=== PATIENT | female | born 1965 | race Caucasian/White ===

== ENCOUNTER 2021-11-30 13:55 | Emergency (ER) | payer OTHER, SELFPAY ==
[2021-11-30 15:10] VITALS: BP 118/73; PULSE 75; RESP 19; TEMP 36.7; O2SAT 100; BMI 24.4
--- NOTE | 2021-11-30 15:23 | EXP.UTC ---
Discharge Plan Disposition Patient Disposition: Home, Self-Care Condition: Good Prescriptions Prescriptions: New methylprednisolone [Medrol (Galen)] 4 mg tablets,dose pack 4 mg PO DIRECTED 6 Days Qty: 6 0RF Rx Instructions: 4 mg orally ;Medrol dose taper galen doxycycline monohydrate 100 mg tablet 100 mg PO BID 10 Days Qty: 20 0RF Referrals Follow up/Referrals: Zee Stacy MD [Primary Care Provider] - See instructions Activity Restrictions/Add. Instructions Additional Instructions/Restrictions: Follow up with ENT as soon as possible. Clinical Impressions Clinical Impression: Acute bacterial sinusitis Instructions Patient Instructions: DI for Sinusitis Discharge ED Provider: Kacy Mendoza [facility] [place] General Stated complaint: congestion, G[place]O Mode of Arrival: Ambulatory Source of Information: Patient Limitations: No Limitations Time Seen by Provider: 11/30/21 15:23 Description of Symptoms (Recalled from Triage Doc. by RN): PATIENT C/O SINUS CONGESTION HEENT Symptoms (Recalled from RN notes): Yes Resp Symptoms (Recalled from RN notes): No Skin Symptoms (Recalled from RN notes): No MS Symptoms (Recalled from RN notes): No Functional Status (Recalled from RN notes): WNL History of Present Illness Provider Complaint: P reports that for the last week she has been experiencing nasal congestion and now she has green bloody drainage. Pt reports that the left side of her face has a lot of pressure. She states that she had sinus surgery on the right side previously. She relates she has not taken anything for her symptoms. Related Data Previous Rx's Medication Instructions Recorded doxycycline monohydrate 100 mg 100 mg PO BID 10 days #20 tabs 11/30/21 tablet methylprednisolone 4 mg tablets in 4 mg PO DIRECTED 6 days #6 tabs 11/30/21 a dose pack (Medrol (Galen)) Allergies Allergy/AdvReac Type Severity Reaction Status Date / Time acetaminophen [From Percocet] Allergy Verified 11/30/21 15:24 codeine Allergy Verified 11/30/21 15:24 hydrocodone [From Lortab] Allergy Verified 11/30/21 15:24 meloxicam Allergy Verified 11/30/21 15:24 Opioids - Morphine Analogues Allergy Verified 11/30/21 15:24 oxycodone [From Percocet] Allergy Verified 11/30/21 15:24 Penicillins Allergy Verified 09/04/22 15:24 Sulfa (Sulfonamide Allergy Verified 11/30/21 15:24 Antibiotics) Worker's Comp Is this a Worker's Comp case?: No PFSH PFSH Medical History (Updated 11/30/21 @ 15:31 by Kacy Mendoza APRN) Migraine Surgical History (Updated 11/30/21 @ 15:22 by Nadja Elkins RN) History of section History of cholecystectomy History of hysterectomy History of tubal ligation Social History (Updated 11/30/21 @ 15:22 by Nadja Elkins RN) Smoking Status: Current every day smoker alcohol intake: never current occupational status: employed Travel in the last 8 weeks: None ROS Obtained: Yes All systems reviewed & no additional complaints except as documented Constitutional Constitutional: Reports system reviewed and no additional complaints, except as documented ENT Ears, Nose, Mouth, and Throat: Reports as per HPI, Reports nasal congestion, Reports nasal discharge, Reports sinus pain and Reports sinus pressure Cardiovascular Cardiovascular: Reports system reviewed and no additional complaints, except as documented Respiratory Respiratory: Reports system reviewed and no additional complaints, except as documented Gastrointestinal Gastrointestingal: Reports system reviewed and no additional complaints, except as documented Musculoskeletal Musculoskeletal: Reports system reviewed and no additional complaints, except as documented Integumentary/Breasts Skin/Breast: Reports system reviewed and no additional complaints, except as documented Physical Exam General General appearance: alert and in no apparent distress Head Head exam: atraumatic and normoceph
[2021-11-30 15:37] VITALS: BP 118/73; PULSE 75; RESP 19; TEMP 36.7; O2SAT 100
== END 2021-11-30 15:39 | disposition home or self-care (01) ==
PROVIDERS: Emergency Provider Nurse Practitioner Family; PCP Family Medicine
DX: J01.90 Acute sinusitis, unspecified (principal); B96.89 Other specified bacterial agents as the cause of diseases classified elsewhere
CPT/HCPCS: 99212; G0463

== ENCOUNTER → 2021-12-12 10:04 | Outpatient (CLI) | payer OTHER, SELFPAY ==
[2021-12-12 11:02] LABS: Basophils # 0.2 K/mm3 (0-0.2); Basophils % 1.4 % (0.1-2.0); Eosinophils # 0.2 K/mm3 (0.0-0.4); Eosinophils % 1.8 % (0.1-12.0); Hematocrit 46.7 % (37.0-47.0); Hemoglobin 14.8 g/dL (12.2-16.2); Lymphocytes # 5.1 K/mm3 (0.7-4.5); Lymphocytes % 44.8 % (10-50); Mean Corpuscular HGB Conc 31.7 g/dL (31.8-35.4); Mean Corpuscular Hemoglobin 32.2 pg (27.0-31.2); Mean Corpuscular Volume 101.6 fl (81-99); Mean Platelet Volume 7.5 fl (7.4-10.4); Monocytes # 0.6 K/mm3 (0.1-1.0); Monocytes % 5.5 % (1.7-9.3); Neutrophils # 5.3 K/mm3 (1.8-7.8); Neutrophils % 46.5 % (37.0-80.0); Platelet Count 333 K/mm3 (142-424); Red Cell Distribution Width 13.1 % (11.5-17.5); White Blood Count 11.4 K/mm3 (4.8-10.8)
== END ==
PROVIDERS: PCP Family Medicine; Visit Provider Physician Assistant
DX: J01.90 Acute sinusitis, unspecified (principal)
CPT/HCPCS: 36415; 85025

== ENCOUNTER → 2021-12-23 13:15 | Outpatient (CLI) | payer OTHER, SELFPAY ==
--- NOTE | 2021-12-23 13:16 | CT_ITS ---
FINAL REPORT CLINICAL HISTORY: papilloma left sinus FINDINGS: CT FACIAL BONES/SINUSES W & W/O CONTRAST Axial CT images were performed through the facial bones/sinuses without and with contrast. Coronal and sagittal reformatted images were submitted. This study was performed with techniques to keep radiation doses as low as reasonably achievable (ALARA). Individualized dose reduction techniques using automated exposure control or adjustment of mA and/or kV according to the patient's size were employed. There is an enhancing mass occupying the entire left maxillary sinus extending into the left nasal air passage with significant narrowing of the left nasal cavity. Bony wall thickening of the left maxillary sinus indicative of a chronic process. Destruction of the medial wall of left maxillary sinus. Mild nasal septal deviation to the right. IMPRESSION: Large left maxillary antrochoanal polyp. Carcinoma not excluded. Reviewed, Interpreted and Dictated by Zee Castillo MD Transcribed by Federico Fair Authenticated and [facility]
== END ==
PROVIDERS: PCP Family Medicine; Visit Provider Student in an Organized Health Care Education/Training Program
DX: D10.6 Benign neoplasm of nasopharynx (principal)
CPT/HCPCS: 70488; Q9967

== ENCOUNTER 2023-11-16 16:12 | Emergency (ER) | payer OTHER, SELFPAY ==
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
[2023-11-16 16:19] VITALS: BP 125/51; PULSE 89; RESP 20; TEMP 36.8; O2SAT 98; BMI 27.3
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
--- NOTE | 2023-11-16 16:21 | XR_ITS ---
PROCEDURE INFORMATION: Exam: XR Left Ankle Exam date and time: 11/16/2023 4:30 PM Age: 58 years old Clinical indication: Injury or trauma; Other: Tree on leg; Blunt trauma; Ankle; Left; Additional info: Tree fell on leg TECHNIQUE: Imaging protocol: Radiologic exam of the left ankle. Views: 3 or more views. COMPARISON: CR XR FOOT LT MIN 3V 11/16/2023 4:28 PM FINDINGS: Bones/joints: The osseous structures appear intact with no evidence of acute fracture, dislocation, or malalignment. Joint spaces are preserved. No abnormal bone density or destructive lesions are noted. Soft tissues: Soft tissues appear unremarkable. IMPRESSION: At the time of imaging, there is no evidence for acute osseous abnormalities.
[2023-11-16] MEDS: ACETAMINOPHEN 500MG TAB 1000 MG PO (17:26)
[2023-11-16] MEDS: IBUPROFEN 400 MG TABLET 800 MG PO (17:27)
[2023-11-16 17:32] VITALS: BP 109/63; PULSE 77; RESP 16; TEMP 36.7; O2SAT 99
== END 2023-11-16 17:33 | disposition home or self-care (01) ==
PROVIDERS: Emergency Provider Emergency Medicine; PCP Family Medicine
DX: S80.12XA Contusion of left lower leg, initial encounter (principal); W20.8XXA Other cause of strike by thrown, projected or falling object, initial encounter
CPT/HCPCS: 73590; 73610; 73630; 99283

== ENCOUNTER 2024-12-01 11:55 | Day surgery (SDC) | payer OTHER, SELFPAY ==
--- OUTSIDE RECORDS SUMMARY | 2024-11-03 04:30 | XMS_ITS ---
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 Role Phone Jael Stacy Primary Care Provider Neto Samuel [phone] REASON FOR VISIT allergy shots Encounters Encounter Location Date Provider Diagnosis [facility] [address] [facility] [place] [address] [facility] [address] [place] [id number] 11/03/2024 Neto Samuel Seasonal allergic rhinitis due to other allergic trigger J30.89 Assessments Encounter Date Diagnosis (ICD Code) Assessment Notes Treatment Notes Treatment Clinical Notes Section Notes 11/03/2024 Seasonal allergic rhinitis due to other allergic trigger (ICD-10 - J30.89) Plan Of Treatment Next Appt Details Provider Name:Neto Rosado ry, 12/05/2024 10:45:00 AM, [address] [facility] [place] [address] [facility], [address], [place], [phone], Medications Administered Medication Instructions Date of Administration Dosage Notes allergy 11/03/2024 0.35 mL Dog mix RA allergy 11/03/2024 0.35 mL cat mix LA Progress Notes * Trudy ZABALAOB: 8 (59 yo F)Acc No.[id number]:11/03/2024 Patient: Mica EBRNAL Provider: Asiya Samuel M.D. :1965 A ge:59 Y S ex:Female Date:11/03/2024 Address:[place], [id number] Pcp:Jael Stacy Subjective: * Chief Complaints: * 1 . Allergy shots. * Medical History: Objective: * Vitals: Assessment: * Assessment: 1. S easonal allergic rhinitis due to other allergic trigger - J30.89 (Primary) ? Plan: * Treatment: * Therapeutic Injections: allergy : 0.35 mL (Route: Subcutaneous) given by Karla Travis on subcutaneus (Seasonal allergic rhinitis due to other allergic trigger) allergy : 0.35 mL (Route: Subcutaneous) given by Karla Travis on subcutaneus (Seasonal allergic rhinitis due to other allergic trigger) * Procedure Codes: 9 5117 IMMUNOTHERAPY INJECTIONS * Images: Billing Information: * Visit Code: * Procedure Codes: 12977 IMMUNOTHERAPY INJECTIONS. * Electronic signature of Lulú Samuel MD on 12/04/2024 at 02:01 PM EDT Sign off status: Pending * Provider: Asiya Samuel M.D. Date: 0 11/03/2024 Generated for Leana mccullough/Rosi/Malvinitting on: 0 12/04/2024 02:01 PM EDT
--- OUTSIDE RECORDS SUMMARY | 2024-11-11 07:00 | XMS_ITS ---
[facility] [address] [facility] [address] [facility] [address] [place] [id number] Care Team Providers Care Permit Specialist Name Role Phone Jael Stacy Primary Care Provider [phone] Neto Samuel Unavailable [phone] REASON FOR VISIT allergy injection Medications Medication SIG (Take, Route, Frequency, Duration) Notes Start Date End Date Status Nicotine Polacrilex 2 mg CHEW 1 PIECE OF GUM EVERY 2 HOURS NEEDED; Duration: 9 Active buPROPion HCl ER (SR) 150 mg TAKE ONE TABLET BY MOUTH 2 TIMES A DAY; Duration: 30 Active Montelukast Sodium 10 MG 1 tablet Orally Once a day; Duration: 90 days Active Xyzal Allergy 24HR 5 MG 1 tab(s) orally once a day (in the evening); Duration: 30 day(s) Active Encounters Encounter Location Date Provider Diagnosis [place] [address] [facility] [address] [facility] [address] [place] [id number] 11/11/2024 Neto Samuel Allergic rhinitis, unspecified seasonality, unspecified trigger J30.9 Assessments Encounter Date Diagnosis (ICD Code) Assessment Notes Treatment Notes Treatment Clinical Notes Section Notes 11/11/2024 Allergic rhinitis, unspecified seasonality, unspecified trigger (ICD-10 - J30.9) Plan Of Treatment Next Appt Details Provider Name:Neto Rosado ry, 12/05/2024 10:45:00 AM, [address] [facility] [address] [facility], [address], [place], [id number], Medications Administered Medication Instructions Date of Administration Dosage Notes allergy 11/11/2024 0.35 mL Dog Mix: LT Ar m allergy 11/11/2024 0.35 mL Cat Mix: RT Ar m Progress Notes * Trudy ZABALAOB: 8 (59 yo F)Acc No.[id number]:11/11/2024 Patient: Mica BERNAL Provider: Asiya Samuel M.D. :1965 A ge:59 Y S ex:Female Date:11/11/2024 Address:[id number] Pcp:Jael Stacy Subjective: * Chief Complaints: * 1 . Allergy injection. * Medical History: * Medications: T aking Xyzal Allergy 24HR 5 MG Tablet 1 tab(s) orally once a day (in the evening) , Taking Montelukast Sodium 10 MG Tablet 1 tablet Orally Once a day , Taking Nicotine Polacrilex 2 mg Gum CHEW 1 PIECE OF GUM EVERY 2 HOURS NEEDED , Taking buPROPion HCl ER (SR) 150 mg Tablet Extended Release 12 Hour TAKE ONE TABLET BY MOUTH 2 TIMES A DAY , Medication List reviewed and reconciled with the patient Objective: * Vitals: Assessment: * Assessment: 1. A llergic rhinitis, unspecified seasonality, unspecified trigger - J30.9 (Primary) ? Plan: * Treatment: * Therapeutic Injections: allergy : 0.35 mL (Route: Subcutaneous) given by Josy Cervantes on subcutaneus (Allergic rhinitis, unspecified seasonality, unspecified trigger) allergy : 0.35 mL (Route: Subcutaneous) given by Josy Cervantes on subcutaneus (Allergic rhinitis, unspecified seasonality, unspecified trigger) * Procedure Codes: 9 5117 IMMUNOTHERAPY INJECTIONS * Images: Billing Information: * Visit Code: * Procedure Codes: 64043 IMMUNOTHERAPY INJECTIONS. * Electronic signature of Lulú Samuel MD on 12/04/2024 at 02:01 PM EDT Sign off status: Pending * Provider: Asiya Samuel M.D. Date: 11/11/2024 Generated for Leana mccullough/Rosi/eTcodismitting on: 0 12/04/2024 02:01 PM EDT
--- OUTSIDE RECORDS SUMMARY | 2024-11-24 06:00 | XMS_ITS ---
Author [facility] Address [address] [place] [id number] Care Team Providers Care Presser All Around Name Role Phone Jael Stacy Primary Care Provider [phone] Neto Samuel Unavailable [phone] Allergies Allergen (clinical drug ingredient) Drug/Non Drug Allergy documented on EMR Reaction Allergy Type Onset Date Status amoxicillin Amoxicillin Unknown Drug Allergy Act azucena cefdinir Cefdinir Unknown Drug Allergy Active doxycycline Doxycycline Unknown Drug Allergy Act azucena acetaminophen / hydrocodone HYDROcodone-Acetamino phen Unknown Drug Allergy Active Levaquin Unknown Drug Allergy Active Lortab Unknown Drug Allergy Active meloxicam Meloxicam Unknown Drug Allergy Active naproxen Naproxen Unknown Drug Allergy Active acetaminophen / oxycodone Percocet Unknown Drug Allergy Active codeine Codeine Unknown Drug Allergy Active Substance with penicillin structure and antibacterial mechanism of action (substance) Penicillins Unknown Drug Allergy Active Substance with sulfonamide structure and antibacterial mechanism of action (substance) Sulfa Antibiotics Unknown Drug Allergy Active tramadol traMADol Unknown Drug Allergy Active REASON FOR VISIT allergy shots Medications Medication SIG (Take, Route, Frequency, Duration) Notes Start Date End Date Status Montelukast Sodium 10 MG 1 tablet Orally Once a day; Duration: 90 days Active Nicotine Polacrilex 2 mg CHEW 1 PIECE OF GUM EVERY 2 HOURS NEEDED; Duration: 9 Active buPROPion HCl ER (SR) 150 mg TAKE ONE TABLET BY MOUTH 2 TIMES A DAY; Duration: 30 Active Xyzal Allergy 24HR 5 MG 1 tab(s) orally once a day (in the evening); Duration: 30 day(s) Active Encounters Encounter Location Date Provider Diagnosis [facility] [address] [facility] [address] [place] [id number] 11/24/20[place] Seasonal allergic rhinitis due to other allergic trigger J30.89 Assessments Encounter Date Diagnosis (ICD Code) Assessment Notes Treatment Notes Treatment Clinical Notes Section Notes 11/24/2024 Seasonal allergic rhinitis due to other allergic trigger (ICD-10 - J30.89) Plan Of Treatment Next Appt Details Provider Name:Netoprakash Rosado ry, 12/05/2024 10:45:00 AM, [address] [facility], [address], [place], [phone], Medications Administered Medication Instructions Date of Administration Dosage Notes allergy 11/24/2024 0.05 mL allergy 11/24/2024 0.05 mL Progress Notes * Trudy ZABALAOB: 8 (59 yo F)Acc No.[id number]:11/24/2024 Patient: Mica BERNAL Provider: Asiya Samuel M.D. :1965 A ge:59 Y S ex:Female Date:11/24/2024 Address:[address] [place], [place] [address] [facility] Pcp:Jael Stacy Subjective: * Chief Complaints: * 1 . Allergy shots. * Medical History: M edical History Verified. * Medications: T aking Xyzal Allergy 24HR [...] List reviewed and reconciled with the patient * Allergies: C odeine, Penicillins, Percocet, HYDROcodone-Acetaminophen, Sulfa Antibiotics, Meloxicam, Doxycycline, Lortab, Naproxen, Levaquin, Cefdinir, Amoxicillin, traMADol. Objective: * Vitals: Assessment: * Assessment: 1. S easonal allergic rhinitis due to other allergic trigger - J30.89 (Primary) ? Plan: * Treatment: * Therapeutic Injections: allergy : 0.05 mL (Route: Subcutaneous) given by FLAQUITO Lam on subcutaneus (Seasonal allergic rhinitis due to other allergic trigger) allergy : 0.05 mL (Route: Subcutaneous) given by FLAQUITO Lam on subcutaneus (Seasonal allergic rhinitis due to other allergic trigger) * Procedure Codes: 9 5117 IMMUNOTHERAPY INJECTIONS * Images: Billing Information: * Visit Code: * Procedure Codes: 80089 IMMUNOTHERAPY INJECTIONS. * Electronic signature of Lulú Samuel MD on 12/04/2024 at 02:01 PM EDT Sign off status: Pending * Provider: Asiya Samuel M.D. Date: 0 11/24/2024 Generated for Leana mccullough/Rosi/Bree on: 0 12/04/2024 02:01 PM EDT
[2024-12-01] VITALS (47 sets, daily range): BP systolic 90–140; BP diastolic 5–80; PULSE 54–89; RESP 11–21; TEMP 36.6–37.1; O2SAT 94–100; BMI 27.3
--- OUTSIDE RECORDS SUMMARY | 2024-12-01 07:15 | XMS_ITS ---
[facility] Organization [facility] Address [address] [place] [id number] Care Team Providers Care Drift Miner Name Role Phone Jael Stacy Primary Care Provider Neto Samuel Unavailable [phone] Allergies Allergen (clinical drug ingredient) Drug/Non Drug [...] Unknown Drug Allergy Active REASON FOR VISIT chest pain Medications Medication SIG (Take, Route, Frequency, Duration) Notes Start Date End Date Status buPROPion HCl ER (SR) 150 mg TAKE ONE TABLET BY MOUTH 2 TIMES A DAY; Duration: 30 Active Montelukast Sodium 10 MG 1 tablet Orally Once a day; Duration: 90 days Active Nicotine Polacrilex 2 mg CHEW 1 PIECE OF GUM EVERY 2 HOURS NEEDED; Duration: 9 Active Xyzal Allergy 24HR 5 MG 1 tab(s) orally once a day (in the evening); Duration: 30 day(s) Active Vital Signs Blood pressure systolic 130 mm Hg 12/02/19 25 Blood pressure diastolic 90 mm Hg 025 Heart Rate 74 /min 12/01/2024 Height 61.50 in 12/01/2024 Encounters Encounter Location Date Provider Diagnosis [facility] [address] [place] [id number] 12/01/2024 Neto Samuel Chest pain, unspecif ied type R07.9 Assessments Encounter Date Diagnosis (ICD Code) Assessment Notes Treatment Notes Treatment Clinical Notes Section Notes 12/01/2024 Chest pain, unspecified type (ICD-10 - R07.9) Patient taken to ER for further evaluation Plan Of Treatment Treatment Notes Assessment Notes Chest pain, unspecified type Patient shaheed en to ER for further evaluation Next Appt Details Provider Name:Neto Rosado ry, 12/05/2024 10:45:00 AM, [address], [address], [place], [id number], Progress Notes * Trudy ZABALAOB: 8 (59 yo F)Acc No.[id number]:12/01/2024 Progress Notes Patient: Mica BERNAL Provider: Asiya Samuel M.D. :1965 A ge:59 Y S ex:Female Date:12/01/2024 Address:[place], [place] Pcp:Jael Stacy Subjective: * Chief Complaints: * 1 . Chest pain. * HPI: C ardiology: 59 year old female presents with c/o Chest Pain P t complains of sharp chest pain that started about 20 minutes ago. Pt states she is short of breath and the pain is radiating to rt side of her neck. Pt states nothing seems to make the pain worse or better?. * ROS: D ERMATOLOGY: no R shante. n o H stefani. G ASTROENTEROLOGY: no N ausea. n o V omiting. U ROLOGY: no D ifficulty urinating. n o B lood in urine. * Medical History: A nxiety, Cigarette Nicotine Dependence, Panic Attacks, Seasonal Allergic Rhinitis, Chronic Maxillary Sinusitis, Major Depressive Disorder. * Surgical History: C section 1985, ganglion cyst 1986.1988, scar revision 1994, tubal ligation 1994, cholecystectomy 2002, sinus x 2 2004, Hysterectomy 2014, sinus surgery 01/2022. * Hospitalization/Major Diagno stic Procedure: D enies Past Hospitalization. * Family History: F ather: alive 87 yrs. M other: , diabetes and CHF. S iblings: brother with thyroid disease. 3 brother(s) . 2 son(s) . . * Social History: C affeine: yes, frequency:coffee, pop and tea, qd. Home smoke detector use: yes. Marital Status: . Past smoking status: yes, Smoking status: Patient does smoke, Packs per day: 1, Number Cigarettes per day: 20, Since age of: 18, Smoking preference: cigarettes. Alcohol: Yes, Type: , Frequency: ,Years: , Determination:, rare. Sexually active: yes. * Medications: T aking Xyzal Allergy 24HR [...] Levaquin, Cefdinir, Amoxicillin, traMADol. Objective: * Vitals: W t: Not Taken - Declined by Patient, Temp: 98.1, BP: 130/90, HR: 74, O2 Sat: 99% on RA, Nurse: richard, Ht: 61.50. Assessment: * Assessment: 1. C hest pain, unspecified type - R07.9 (Primary) Plan: * Treatment: * Images: Billing Information: * Visit Code: * Procedure Codes: * Electronic signature of Lulú Samuel MD on 12/04/2024 at 02:00 PM EDT Sign off status: Pending * Provider: Asiya Samuel M.D. Date: 12/01/2024 Generated for Leana mccullough/Rosi/eTransmitting on: 0 12/04/2024 02:00 PM EDT History and Physical Notes * HPI (History of Present Illness) Category Sub-Category Detail Notes Category Not es Cardiology Chest Pain Pt complains of sharp chest pain that started about 20 minutes ago. Pt states she is short of breath and the pain is radiating to rt side of her neck. Pt states nothing seems to make the pain worse or better
--- NOTE | 2024-12-01 11:57 | ECG_ITS ---
APPROVED REPORT Exam: Resting ECG HR:65 bpm ECG Measurements Heart Rate 65 AXES AZ 157 P 44 QRSd 78 QRS 45 QT 429 T 58 QTc 440 Conclusion Normal sinus rhythm Normal axis Normal intervals No STEMI Electronically signed by : Jamison Bates, 12/01/2024 17:35:52
--- NOTE | 2024-12-01 12:00 | XR_ITS ---
FINAL REPORT CLINICAL HISTORY: short of breath FINDINGS: A portable view of the chest is obtained. There is no prior exam for comparison. Cardiac and mediastinal silhouettes are normal. The lungs are clear. There is no pleural effusion or pneumothorax. IMPRESSION: No acute process on this portable exam. Reviewed, Interpreted and Dictated by Ju Story MD Transcribed by Chula Darby Authenticated and [facility]
--- OUTSIDE RECORDS SUMMARY | 2024-12-01 12:00 | XMS_ITS | Clinical Summary ---
Author Organization [facility] Address [address] [place] [address] Care Team Providers Care Pomologist Name Role Phone Orestes Stacy MD Primary Care Provider [phone] Kimmie Burks MD Unavailable Allergies Active Allergy Reactions Criticality Noted Date Comments Acetaminophen-Codeine Anxiety,Hallucinat ions,Palp itations Medium 01/28/2022 Cefdinir Palpitations,Rash Low 12/18/2021 Codeine Anxiety,Hallucinatio ns,Shor tness of breath High 01/28/2022 Doxycycline Dizziness,Hives,Itching Medium 12/02/2021 Hydrocodone-Acetaminophen GI bleeding,Itching,Rash High 01/28/2022 Meloxicam Hives,Itching Medium 12/17/2021 Naproxen GI bleeding High 01/28/2022 Oxycodone-Acetaminophen Dizziness,Hives, Itching,Pal pitations,Swelling High 01/28/2022 Penicillins Anxiety,Dizziness,He adache, Itching,Rash,Swelling,Wheez ing High 01/28/2022 Sulfa Drugs Shortness of breath,Wheezing High 01/28/2022 Tramadol Anxiety,Headache,Pal pitatio ns,Rash,Shortness of breath High 01/28/2022 Medications levocetirizine (Xyzal) 5 MG tablet 0 Active carboxymethylce llulose (THERATears) 0.25 % ophthalmic solution Administer 1 drop into both eyes 4 (four) times a day. 15 mL 11 3 Active olopatadine (Patanol) 0.1 % ophthalmic solution Administer 1 drop into both eyes 2 (two) times a day. As needed for itchy eyes 5 mL 11 3 Active gabapentin (Neurontin) 100 MG capsule Take 1 capsule (100 mg total) by mouth 3 (three) times a day for 7 days, THEN 2 capsules (200 mg total) 3 (three) times a day for 7 days, THEN 3 capsules (300 mg total) 3 (three) times a day. 333 capsule 3 Active buPROPion SR (Wellbutrin SR) 150 MG 12 hr tablet 3 Active Dymista 137-50 MCG/ACT suspension 4 Active montelukast (Singulair) 10 MG tablet 4 Active Polyethyl Glycol-Propyl Glycol (Systane) 0.4-0.3 % gel Apply to affected eye(s). 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 03/26/2022 Left epiphora 03/26/2022 Encounters Date Type Department Care Team Description 09/19/2024 8:45 AM EDT Office Visit [facility] Otolaryngology [address] [place] [id number] Omega Limon MD History of inverted papilloma (Primary Dx); Nasal mass 09/19/2024 Travel 09/14/2024 Travel from Last 3 Months Family History Medical History Relation Name Comments Cancer Brother Diabetes Brother Diabetes Father Cancer Mother Diabetes Mother Heart disease Mother Anesthesia problems Neg Hx Malig Hypertension Neg Hx Malig Hyperthermia Neg Hx Relation Name Status Comments Brother Father Mother Social History Tobacco Use Types Packs/Day Years Used Date Smoking Tobacco: Some Days Cigarettes Last attempted to quit: 01/23/2022 Passive Smoke Exposure: Current Smokeless Tobacco: Never Tobacco Cessation:Ready to Q uit: Not Asked; Counseling Given: Not Answered Alcohol Use Standard Drinks/Week Comments Never 0 (1 standard drink = 0.6 oz pur e alcohol) Comments Unknown Sex and Gender Information Value Date Recorded Sex Assigned at Female 01/29/2022 2:24 PM EDT Legal Sex Female 6:57 PM EDT Gender Identity Female 01/29/2022 2:24 PM EDT Sexual Orientation Straight 01/29/2022 2: 24 PM EDT Last Filed Vital Signs Vital Sign Reading Time Taken Comments Blood Pressure 127/83 09/19/2024 8:47 AM EDT Pulse 66 09/19/2024 8:47 AM EDT Temperature 36.9 C (98.4 F) 02/10/2022 2:48 AM EST Respiratory Rate 18 06/29/2022 1:47 PM EDT Oxygen Saturation 96% 06/29/2022 1:47 PM EDT Inhaled Oxygen Concentration - - Weight 64.5 kg (142 lb 3.2 oz) 09/19/2024 8:47 A M EDT Height 152.4 cm (5') 09/19/2024 8:47 AM EDT Body Mass Index 27.77 09/19/2024 8:47 AM EDT Plan of Treatment Upcoming Encounters Date Type Department Care Team (Late st Contact Info) Description 02/28/2025 1:15 PM EST [facility] [address] [place] [address] Omega Limon MD [address] [place] [address] Health Maintenance Due Date Last Done Comments [facility]-Depression Screening 1965 [facility]-/Child/Adol SDOH Screenings 1965 [facility]- SDOH Screenings 1985 [facility]-Adult SDOH Screenings 1985 [facility]-Hepatitis B Vaccines (1 of 3 - 19+ 3-dose series) 1986 [facility]-Pneumococcal Vaccine: 50+ Years (1 of 2 - PCV) 1986 CT Colonography 2012 Colonoscopy 2012 FIT-DNA 2012 FIT 2012 FOBT 2012 Sigmoidoscopy 2012 [facility]-Colorectal Cancer Screening 2012 [facility]-Breast Cancer Screening 2017 [facility]-Zoster Vaccines (1 of 2) 2017 [id number] Vaccine (1 - 2023- season) 2023 [facility]-Influenza Vaccine (#1) 2024 [facility]-DTaP,Tdap,and Td Vaccines (2 - Td or Tdap) 12/31/2030 12/31/2020 [facility]-HIV Screening Completed 02/09/2022 [facility]-Hepatitis C Screening Completed 02/09/2022 [facility]-Obesity Intervention Completed 025, 06/19/2024, 05/03/2024, Additional history exists HPV Vaccines Aged Out No longer eligi ble based on patient's age to complete this topic [facility]-HIB Vaccines Aged Out No longer e ligible based on patient's age to complete this topic [facility]-Hepatitis A Vaccines Aged Out No longer eligible based on patient's age to complete this topic [facility]-IPV Vaccines Aged Out No longer e ligible based on patient's age to complete this topic [facility]-Rotavirus Vaccines Aged Out No lo nger eligible based on patient's age to complete this topic Medical Devices Implanted Type Area Medical Assistant Prn Device Identifier Shelf Expiration Date Model / Serial / Lot Breast Breast Breast Procedures Procedure Name Priority Date/Time Associated Diagnosis Comments HEPATITIS C ANTIBODY - ED W/REFLEX TO HCV QUANT PCR STAT 02/09/2022 9:07 PM EST HIV 1/2 ANTIBODY/ANTIGEN SCREEN WITH REFLEX TO HIV I/II DIFFERENTIATION STAT 02/09/2022 9:07 PM EST from Last 3 Months or Most Recently Relevant to Health Maintenance Results * HIV 1 & 2 Antibody/Antigen Screen (02/09/2022 9:07 PM EST) HIV 1 & 2 Antibody/Anti gen Screen Nonreactive Nonreactive 02/09/2022 10:51 PM EST [facility] Blood Venous blood specimen / Unknown Venipuncture / Unknown 02/09/2022 9:07 PM EST 02/09/2022 9:53 PM EST Akbar Blanchard MD LAB BLOOD ORDERABLES Final Resul t [facility] [address] [place] [id number] * Hepatitis C Antibody - ED (02/09/2022 9:07 PM EST) Hepatitis C Antibody Negative Negative 02/09/2022 10:53 PM EST [facility] Blood Venous blood specimen / Unknown Venipuncture / Unknown 02/09/2022 9:07 PM EST 02/09/2022 9:53 PM EST us Akbar Blanchard MD LAB BLOOD ORDERABLES Final Resul t [facility] [address] [place] [address] from Last 3 Months or Most Recently Relevant to Health Maintenance Insurance [employer]ICAID Care Teams Pomologist Relationship Specialty Start Date End Date Orestes Stacy MD [address] [place] [address] PCP - General 01/19/22 Kimmie Burks MD [address] [place] [address] Resident Neurology 06/29/22
--- OUTSIDE RECORDS SUMMARY | 2024-12-01 12:00 | XMS_ITS | Encounter Summary ---
Author Organization [facility] Address [address] [place] [address] Care Team Providers Care Ice Plant Operator Name Role Phone Orestes Stacy MD Primary Care Provider [phone] Kimmie Burks MD Unavailable Encounter Details Date Type Department Care Team (Late Contact Info) Description 12/23/2021 Orders Only External Location [address] [place] [address] Lester Thorne MD [address] [facility] [address] [place] [address] Social History Tobacco Use Types Packs/Day Years Used Date Smoking Tobacco: Never Assessed Comments Unknown Sex and Gender Information Value Date Recorded Sex Assigned at Female 01/29/2022 2:24 PM EDT Legal Sex Female 6:57 PM EDT Gender Identity Female 01/29/2022 2:24 PM EDT Sexual Orientation Straight 01/29/2022 2: 24 PM EDT documented as of this encounter Plan of Treatment Upcoming Encounters Date Type Department Care Team (Late st Contact Info) Description 02/28/2025 1:15 PM EST Office Visit [place] [facility] [address] [place] [address] Omega Limon MD [address] [facility] [address] [place] [address] documented as of this encounter Procedures Procedure Name Priority Date/Time Associated Diagnosis Comments CT NEURO OUTSIDE IMAGES 12/23/2021 1:32 PM EDT documented in this encounter Results * CT NEURO OUTSIDE IMAGES (12/23/2021 1:32 PM EDT) Anatomical Region Laterality Modality Computed Tomogra phy 12/23/2021 1:3 2 PM EDT Lester Thorne MD IMG CT PROCEDURES Final Resul t documented in this encounter Visit Diagnoses Not on filedocumented in this encounter Care Teams Ice Plant Operator Relationship Specialty Start Date End Date Orestes Stacy MD [address] [place] [address] PCP - General 01/19/22 Kimmie Burks MD [address] [place] [address] Resident Neurology 06/29/22 documented as of this encounter
[2024-12-01 12:15] LABS: Coronavirus 19, PCR Not Detected (NotDetected); Influenza A, PCR Not Detected (NotDetected); Influenza B, PCR Not Detected (NotDetected)
[2024-12-01] MEDS: ASPIRIN 325MG TABLET 325 MG PO (12:15)
[2024-12-01] MEDS: FAMOTIDINE 20MG/2ML VIAL 20 MG IV (12:15)
[2024-12-01] MEDS: ONDANSETRON 4MG/2ML VIAL 4 MG IV (12:15)
[2024-12-01 12:17] LABS: Hematocrit 45.3 % (37.0-47.0); Hemoglobin 14.8 g/dL (12.2-16.2); Immature Granulocytes % 0.1 %; Mean Corpuscular HGB Conc 32.7 g/dL (31.8-35.4); Mean Corpuscular Hemoglobin 31.5 pg (27.0-31.2); Mean Corpuscular Volume 96.4 fl (81-99); Nucleated Red Blood Cells % 0 %; Platelet Count 316 K/mm3 (142-424); Red Blood Count 4.70 M/mm3 (4.20-5.40); Red Cell Distribution Width-SD 45.2 fL; White Blood Count 7.1 K/mm3 (4.8-10.8)
--- NOTE | 2024-12-01 12:20 | ED_ITS ---
<Statement entered by Jamison Bates DO - 12/02/24 07:37> I was consulted by the CHACHO, and we discussed the complexity of problems being addressed. I approved the treatment and management plan for this patient's care in the emergency department, thus performing a substantive portion of the medical decision making. I independently evaluated and obtained history from this patient. I do agree with CHACHO evaluation and plan. This patient was asked in clinic with Dr. Samuel. He was obtaining history that was concerning for anginal pain and referred her here for further evaluation. Initial EKG appeared nonischemic with no evidence of STEMI. Patient was telling me that this pain is exertional and also occurs at rest and radiates into her left neck. There is times where her pain is not as severe, with intermittent episodes of her pain becomes very severe. During her stay in the emergency department both of her troponins were negative. She did have an acute episode where she began clutching her chest and complaining of severe chest pain. We repeated an EKG during this time and it was unchanged. Her heart score is in the low risk category, however her story is highly convincing that this is anginal chest pain. Therefore we had an interactive discussion with Dr. Bey with the cardiology service who agreed to admit the patient for cardiac catheterization. Jamison Bates DO Discharge Plan Disposition Patient Disposition: Admitted Condition: Fair Prescriptions Prescriptions: No Action No Known Home Medications Referrals Follow up/Referrals: Neto Samuel MD [Primary Care Provider, Medical] - See instructions Clinical Impressions Clinical Impression: Angina at rest Print Language Print Language: Lithuanian Discharge ED Provider: Jamison Bates HPI <Terra Hui (ED), RIB TRIM SEPARATOR - Last Filed: 12/01/24 17:01> General Chief Complaint: Chest Pain Stated Complaint: cp Time Seen by Provider: 12/01/24 12:00 Mode of Arrival: Ambulatory Source of Information: Patient Description of Symptoms (Recalled from ER Triage Doc. by RN): Patient presents to ED with c/o mid-sternal chest pain, states I feel like I was kicked in the chest. Patient states pain started this AM then resolved but came back while she was here to get her allergy shot. Patient also notes some mild SOA and nausea. History of Present Illness HPI narrative: 59-year-old female presents to the ED for complaint of midsternal chest pain that feels like she has been kicked in the center of her chest. This started today, went away and came back. She does have some shortness of breath and nausea but no vomiting. She is a smoker who is trying to quit. She complains of pain 5 out of 10. She does tell me that she had panic attacks many years ago and it felt like that but today is worse. She has no stents. No heart history. No other associated signs or symptoms at this time. Related Data Home Medications ?Medication ?Instructions ?Recorded ?Confirmed No Known Home Medications 01/14/2212/28 Allergies Allergy/AdvReac Type Severity Reaction Status Date / Time doxycycline Allergy Mild Verified 01/14/22 09:56 acetaminophen (From Percocet) Allergy Verified 01/14/22 09:56 amoxicillin Allergy Verified 01/14/22 10:07 cefdinir Allergy Verified 01/14/22 10:07 codeine Allergy Verified 01/14/22 09:56 hydrocodone (From Lortab) Allergy Verified 01/14/22 09:56 levofloxacin Allergy Verified 01/14/22 10:07 meloxicam Allergy Verified 01/14/22 09:56 naproxen Allergy Verified 01/14/22 10:07 Opioids - Morphine Analogues Allergy Verified 01/14/22 09:56 oxycodone (From Percocet) Allergy Verified 01/14/22 09:56 Penicillins Allergy Verified 01/14/22 09:56 propoxyphene (From Allergy Verified 01/14/22 10:07 Darvocet-N) Sulfa (Sulfonamide Allergy Verified 01/14/22 09:56 Antibiotics) tramadol Allergy Verified 01/14/22 10:07 [facility] <Terra Hui (ED), RIB TRIM SEPARATOR - Last Filed: 12/01/24 17:01> [facility] Disclaimer: The information contained in this section may have been updated after the patient was seen, as this information can be updated by other users. Medical History (Updated 12/01/24 @ 16:22 by Terra Hui (ED), RIB TRIM SEPARATOR) Urinary tract infection Anxiety Allergies History of anemia Mass of sinus Papilloma of nasopharynx Sore throat Migraine Surgical History (Updated 01/15/22 @ 14:43 by Tri Cervantes RN) H/O breast augmentation History of sinus surgery History of tubal ligation History of hysterectomy History of section History of cholecystectomy Family History (Updated 01/15/22 @ 14:44 by Tri Cervantes RN) Mother Colon cancer Family history of myocardial infarction Family history of diabetes mellitus type II Social History (Updated 01/15/22 @ 14:45 by Tri Cervantes RN) Smoking Status: Current every day smoker alcohol intake: never current occupational status: unemployed Travel in the last 8 weeks?: None do you feel safe at home: Yes victim of physical abuse: No victim of emotional abuse: No victim of sexual abuse: No would you like helpful sources: No Have you lived/traveled outside [place] in past 30 days?: No Contact w/someone who lives/traveled outside US past 30 days?: No Exposure to someone with infectious disease in past 14 days?: No Do you have a fever (greater than 100.4 F or 38 C)?: No Have you tested positive for COVID-19?: No Exposed to someone with COVID-19 in past 14 days?: No Do you have a sore throat?: No Do you have a cough?: No Do you have any weakness?: No Do you have any diarrhea?: No Are you experiencing any unusual bleeding?: No Do you have any muscle aches/pain?: No Do you have any abdominal pain?: No Are you experiencing loss of taste or smell?: No <Terra Hui (ED), RIB TRIM SEPARATOR - Last Filed: 12/01/24 17:01> ROS Obtained: Yes Systems reviewed as appropriate & no additional complaints except as documented Constitutional Constitutional: Reports as per HPI Physical Exam <Terra Hui (ED), RIB TRIM SEPARATOR - Last Filed: 12/01/24 17:01> General General appearance: alert, anxious and in distress Head Head exam: normocephalic Eye Eye exam: Present PERRL and EOMI ENT ENT exam: Present mucous membranes moist Neck Neck exam: Present trachea midline Chest Chest inspection: Present symmetric chest wall rise Respiratory Respiratory exam: Present normal lung sounds bilaterally Cardiovascular Cardiovascular exam: Present regular rate, normal rhythm, normal heart sounds, +S1 and +S2 Abdominal Exam Abdominal exam: Present soft and normal bowel sounds Extremities Exam Extremities exam: Present normal inspection, full ROM and normal capillary refill Back Exam Back exam: Present full ROM Neurological Exam Neurological exam: Present alert, oriented X3 and normal gait Psychiatric Psychiatric exam: Present normal affect and normal mood Skin Skin exam: Present warm and dry HEART Score <Terra Kilmaggie (ED), RIB TRIM SEPARATOR - Last Filed: 12/01/24 17:01> HEART Score HEART Score assessment performed?: Yes HEART Score: 2 Critical Care <Terra Kilmaggie (ED), RIB TRIM SEPARATOR - Last Filed: 12/01/24 17:01> Critical Care Time Critical Care Time: No Medical Decision Making <Terra Kilmaggie (ED), RIB TRIM SEPARATOR - Last Filed: 12/01/24 17:01> Alexander Inquiry Pt receiving controlled substance: No Alexander was queried for this patient: No Vital Signs Vital Signs: 12/01/24 11:59 12/01/24 12:05 12/01/24 12:15 Temperature 97.9 F Temperature Source Oral Pulse Rate 71 71 Pulse Rate [Left] 71 Respiratory Rate 17 16 Blood Pressure Blood Pressure [Right Arm] 140/79 Blood Pressure Mean Blood Pressure Mean [Right Arm] 99 Blood Pressure Source [Right Arm] Automatic Cuff Blood Pressure Position [Right Arm] Supine 02 Sat by Pulse Oximetry 100 98 Oxygen Delivery Method Room Air Room Air 12/01/24 12:30 12/01/24 13:00 12/01/24 13:30 Temperature Temperature Source Pulse Rate 66 59 L 65 Pulse Rate [Left] Respiratory Rate 20 15 18 Blood Pressure 132/74 127/67 119/74 Blood Pressure [Right Arm] Blood Pressure Mean 100 88 Blood Pressure Mean [Right Arm] Blood Pressure Source [Right Arm] Blood Pressure Position [Right Arm] 02 Sat by Pulse Oximetry 97 100 99 Oxygen Delivery Method Room Air Room Air 12/01/24 13:46 12/01/24 13:51 12/01/24 13:53 Temperature Temperature Source Pulse Rate 64 77 62 Pulse Rate [Left] Respiratory Rate 16 17 16 Blood Pressure 107/61 L 90/55 L 121/68 Blood Pressure [Right Arm] Blood Pressure Mean Blood Pressure Mean [Right Arm] Blood Pressure Source [Right Arm] Blood Pressure Position [Right Arm] 02 Sat by Pulse Oximetry 98 96 94 L Oxygen Delivery Method 12/01/24 13:55 12/01/24 14:00 12/01/24 14:05 Temperature Temperature Source Pulse Rate 66 62 61 Pulse Rate [Left] Respiratory Rate 16 18 18 Blood Pressure 106/66 L 124/74 119/74 Blood Pressure [Right Arm] Blood Pressure Mean Blood Pressure Mean [Right Arm] Blood Pressure Source [Right Arm] Blood Pressure Position [Right Arm] 02 Sat by Pulse Oximetry 95 95 96 Oxygen Delivery Method 12/01/24 14:11 12/01/24 14:15 12/01/24 14:21 Temperature Temperature Source Pulse Rate 63 59 L Pulse Rate [Left] Respiratory Rate 17 18 17 Blood Pressure 114/66 128/80 138/77 Blood Pressure [Right Arm] Blood Pressure Mean Blood Pressure Mean [Right Arm] Blood Pressure Source [Right Arm] Blood Pressure Position [Right Arm] 02 Sat by Pulse Oximetry 100 97 98 Oxygen Delivery Method 12/01/24 14:25 12/01/24 14:30 12/01/24 14:35 Temperature Temperature Source Pulse Rate 58 L 64 58 L Pulse Rate [Left] Respiratory Rate 17 21 18 Blood Pressure 118/80 130/79 117/65 Blood Pressure [Right Arm] Blood Pressure Mean Blood Pressure Mean [Right Arm] Blood Pressure Source [Right Arm] Blood Pressure Position [Right Arm] 02 Sat by Pulse Oximetry 98 98 99 Oxygen Delivery Method 12/01/24 14:40 12/01/24 14:45 12/01/24 14:50 Temperature Temperature Source Pulse Rate 55 L 58 L 60 Pulse Rate [Left] Respiratory Rate 17 18 15 Blood Pressure 115/57 L 105/48 L 118/51 L Blood Pressure [Right Arm] Blood Pressure Mean 66 71 Blood Pressure Mean [Right Arm] Blood Pressure Source [Right Arm] Blood Pressure Position [Right Arm] 02 Sat by Pulse Oximetry 97 98 98 Oxygen Delivery Method Room Air Room Air 12/01/24 14:55 12/01/24 15:00 12/01/24 15:06 Temperature Temperature Source Pulse Rate 61 59 L 63 Pulse Rate [Left] Respiratory Rate 15 13 13 Blood Pressure 118/49 L 113/60 101/35 L Blood Pressure [Right Arm] Blood Pressure Mean 75 72 Blood Pressure Mean [Right Arm] Blood Pressure Source [Right Arm] Blood Pressure Position [Right Arm] 02 Sat by Pulse Oximetry 98 99 99 Oxygen Delivery Method Room Air Room Air 12/01/24 15:10 12/01/24 15:15 12/01/24 15:20 Temperature Temperature Source Pulse Rate 62 61 61 Pulse Rate [Left] Respiratory Rate 15 17 20 Blood Pressure 119/62 110/65 111/5 L Blood Pressure [Right Arm] Blood Pressure Mean 74 Blood Pressure Mean [Right Arm] Blood Pressure Source [Right Arm] Blood Pressure Position [Right Arm] 02 Sat by Pulse Oximetry 98 97 98 Oxygen Delivery Method Room Air 12/01/24 15:26 12/01/24 15:30 12/01/24 15:35 Temperature Temperature Source Pulse Rate 59 L 54 L 60 Pulse Rate [Left] Respiratory Rate 17 15 19 Blood Pressure 133/63 122/50 L 127/69 Blood Pressure [Right Arm] Blood Pressure Mean Blood Pressure Mean [Right Arm] Blood Pressure Source [Right Arm] Blood Pressure Position [Right Arm] 02 Sat by Pulse Oximetry 99 99 98 Oxygen Delivery Method 12/01/24 15:40 12/01/24 15:46 12/01/24 15:50 Temperature Temperature Source Pulse Rate 60 62 56 L Pulse Rate [Left] Respiratory Rate 18 17 17 Blood Pressure 119/65 126/75 119/64 Blood Pressure [Right Arm] Blood Pressure Mean 92 82 Blood Pressure Mean [Right Arm] Blood Pressure Source [Right Arm] Blood Pressure Position [Right Arm] 02 Sat by Pulse Oximetry 99 99 98 Oxygen Delivery Method Room Air Room Air 12/01/24 15:56 12/01/24 16:00 12/01/24 16:05 Temperature Temperature Source Pulse Rate 63 63 63 Pulse Rate [Left] Respiratory Rate 12 17 17 Blood Pressure 140/69 123/76 130/65 Blood Pressure [Right Arm] Blood Pressure Mean 92 85 91 Blood Pressure Mean [Right Arm] Blood Pressure Source [Right Arm] Blood Pressure Position [Right Arm] 02 Sat by Pulse Oximetry 98 98 98 Oxygen Delivery Method Room Air Room Air Room Air 12/01/24 16:11 12/01/24 16:17 12/01/24 16:28 Temperature 98.7 F Temperature Source Pulse Rate 89 Pulse Rate [Left] Respiratory Rate 11 L 13 17 Blood Pressure 132/70 102/41 L 121/74 Blood Pressure [Right Arm] Blood Pressure Mean Blood Pressure Mean [Right Arm] Blood Pressure Source [Right Arm] Blood Pressure Position [Right Arm] 02 Sat by Pulse Oximetry Oxygen Delivery Method Room Air Lab Data Labs: Lab Results 12/01/24 12:00: WBC 7.1, RBC 4.70, Hgb 14.8, Hct 45.3, MCV 96.4, MCH 31.5 H, MCHC 32.7, RDW 12.6, Plt Count 316, MPV 8.7, Neut % (Auto) 52.7, Lymph % (Auto) 36.4, [place] % (Auto) 6.9, Eos % (Auto) 2.8, Baso % (Auto) 1.1, Neut # (Auto) 3.7, Lymph # (Auto) 2.6, [place] # (Auto) 0.5, Eos # (Auto) 0.2, Baso # (Auto) 0.1, D- Dimer 0.43, Sodium 142, Potassium 4.0, Chloride 108 H, Carbon Dioxide 24, Anion Gap 14.0, BUN 7, Creatinine 0.80, Estimated Creat Clear 78, Estimated GFR 74, Est GFR ( Amer) 89, Glucose 102 H, Calcium 9.4, Magnesium 2.1, Total Bilirubin 0.5, AST 28, ALT 23, Alkaline Phosphatase 84, Troponin I < 0.01, Total Protein 8.6 H, Albumin 4.8, Globulin 3.8 H, Albumin/Globulin Ratio 1.3, Lipase 47 12/01/24 12:07: SARS-CoV-2 (PCR) Not detected, Influenza A Untype (PCR) Not detected, Influenza Type B (PCR) Not detected 12/01/24 14:40: Troponin I < 0.01 12/01/24 12:00 12/01/24 12:00 Response Orders (Tests/Meds): ED MEDICATIONS Discontinued Medications Generic Name Dose Route Start Last Admin Trade Name Freq PRN Reason Stop Dose Admin Aspirin 325 mg 12/01/24 12:00 12/01/24 12:15 Aspirin 325mg Tablet PO 12/01/24 12:01 325 mg ONCE ONE Administration Diazepam 5 mg 12/01/24 16:13 Diazepam 5mg Tablet PO 12/02/24 04:13 ONCE PRN Anxiety Diphenhydramine HCl 50 mg 12/01/24 16:13 12/01/24 16:45 Diphenhydramine 50mg/Ml Vial IV 12/01/24 16:14 50 mg ONCE ONE Administration Famotidine 20 mg 12/01/24 12:00 12/01/24 12:15 Famotidine 20mg/2ml Vial IV 12/01/24 12:01 20 mg ONCE ONE Administration Fentanyl Citrate 50 mcg 12/01/24 16:13 Fentanyl 100mcg/2ml Vial IV 12/02/24 04:13 Q3MINP PRN Sedation Fentanyl Citrate 25 mcg 12/01/24 16:13 Fentanyl 100mcg/2ml Vial IV 12/02/24 04:13 Q3MINP PRN Sedation Flumazenil 0.2 mg 12/01/24 16:13 Flumazenil 0.1mg/Ml 5ml Vial IV 12/02/24 04:13 NEEDED PRN Sedation Heparin Sodium (Porcine) 5,000 unit 12/01/24 16:13 12/01/24 16:45 Heparin 1,000 Units/Ml 10ml Vial ([employer]maker) IV 12/01/24 20:13 3,000 unit NEEDED PRN Administration Emergency Box Trap Operator Heparin Sodium/Sodium Chloride 3,000 unit 12/01/24 16:13 12/01/24 16:46 Heparin 1,000 Units/500ml Ns ([employer]) IV 12/01/24 16:14 3,000 unit ONCE ONE Administration Hydralazine HCl 20 mg 12/01/24 16:13 Hydralazine 20mg/Ml Vial IV 12/01/24 20:13 ONCE PRN sbp>160 Sodium Chloride 1,000 mls @ 999 mls/hr 12/01/24 13:58 12/01/24 15:17 Sod Chlor 0.9% 1000ml Bag IV 12/01/24 14:58 Infused .Q1H1M ONE Infusion Adenosine 180 mg/ Sodium 90 mls @ 342.916 mls/hr 12/01/24 16:13 Chloride IV 12/01/24 20:13 ONCE PRN fractional flow reserve 180 MCG/KG/MIN Adenosine 90 mg/ Sodium 90 mls @ 685.832 mls/hr 12/01/24 16:13 Chloride IV 12/01/24 20:13 ONCE PRN fractional flow reserve 180 MCG/KG/MIN Sodium Chloride 1,000 mls @ 25 mls/hr 12/01/24 16:15 12/01/24 16:46 Sod Chloride 0.9% 500ml Bag IV 12/02/24 16:13 25 mls/hr .Q25H ALESSANDRO Administration Labetalol HCl 20 mg 12/01/24 16:13 Labetalol 20mg/4ml Syringe IV 12/01/24 20:13 ONCE PRN sbp>160 Lidocaine HCl 10 ml 12/01/24 16:13 12/01/24 16:45 Lidocaine 1% 10ml Mdv IJ 12/01/24 16:14 10 ml ONCE ONE Administration Lidocaine HCl 10 ml 12/01/24 16:13 Lidocaine 1% 5ml Pf Vial IJ 12/01/24 16:14 ONCE ONE Midazolam HCl 1 mg 12/01/24 16:13 Midazolam 2mg/2ml Vial IV 12/02/24 04:13 Q3MINP PRN Sedation Midazolam HCl 1 mg 12/01/24 16:13 Midazolam Hcl 1mg/Ml 5ml Vial IV 12/02/24 04:13 Q3MINP PRN Sedation Morphine Sulfate 4 mg 12/01/24 16:13 Morphine 4mg/Ml Syringe IV 12/01/24 16:14 ONCE ONE Naloxone HCl 0.4 mg 12/01/24 16:13 Naloxone 0.4mg/Ml Vial IV 12/02/24 04:13 Q5MINP PRN Decreased Respirations Nitroglycerin 0.4 mg 12/01/24 13:38 12/01/24 13:44 Nitroglycerin 0.4mg Sl Tablet SL 12/31/24 13:37 0.4 mg Q5MINP PRN Administration Chest Pain Nitroglycerin 800 mcg 12/01/24 16:13 12/01/24 16:46 Nitroglycerin 800mcg/8ml Syr ([employer] Patternmaker) IA 12/01/24 20:13 800 mcg NEEDED PRN Administration Emergency Box Trap Operator Ondansetron HCl 4 mg 12/01/24 12:00 12/01/24 12:15 Ondansetron 4mg/2ml Vial IV 12/01/24 12:01 4 mg ONCE ONE Administration Ondansetron HCl 4 mg 12/01/24 16:13 Ondansetron 4mg/2ml Vial IV 12/02/24 04:13 NEEDED PRN Nausea Promethazine HCl 25 mg 12/01/24 16:13 Promethazine Hcl 25mg/Ml 1ml Vial IV 12/02/24 04:13 NEEDED PRN Nausea And Vomiting Protamine Sulfate 50 mg 12/01/24 16:13 Protamine Sulfate 50mg/5ml Vial ([employer]) IV 12/01/24 20:13 ONCE PRN act>200 Sodium Chloride 8 ml 12/01/24 12:00 Sodium Chloride 0.9% 10ml Vial IV 12/31/24 11:59 NEEDED PRN dilute pepcid Sodium Chloride 25 ml 12/01/24 16:13 Sodium Chloride 0.9% 25ml Bag IV 12/01/24 16:14 ONCE ONE Verapamil HCl 2.5 mg 12/01/24 16:13 12/01/24 16:45 Verapamil 2.5mg/Ml 2ml Vial IV 12/01/24 16:14 2.5 mg ONCE ONE Administration ORDERS Category Date Time Status Chest XR -- portable [XR chest portable] Stat Exams 12/01/24 12:00 Completed CBC [Complete Blood Count Auto Diff] Stat Lab 12/01/24 12:00 Completed Comprehensive Metabolic Panel Stat Lab 12/01/24 12:00 Completed D-Dimer Stat Lab 12/01/24 12:00 Completed Lipase Stat Lab 12/01/24 12:00 Completed Magnesium Stat Lab 12/01/24 12:00 Completed Rapid PCR Covid and Flu A/B Stat Lab 12/01/24 12:07 Completed Trop I [Troponin I] Stat Lab 12/01/24 12:00 Completed Troponin I Q3H Lab 12/01/24 14:40 Completed MDM Narrative Medical Decision Narrative: patient is a 59-year-old female presenting to the emergency department for evaluation of chest pain, shortness of breath. Patient is hemodynamically stable and nontoxic-appearing upon arrival, afebrile. Differential diagnosis includes ACS, PE, viral illness, panic, among others. Workup will be conducted with hematologic labs, specific imaging, provocative tests. Initial inventions include crystalloid bolus, analgesics. Patient started having chest pain 1338 EKG was ordered and sublingual nitro was ordered. Patient complains of pain 8 out of 10. 1348 pain is gone after 1 nitro Initial workup reviewed by me hematologic labs are remarkable for normal troponin, otherwise non actionable labs. Imaging informally interpreted by me and remarkable for nothing acute. Discussed with patient's that she had negative troponins however I called Dr. Bey to discuss her chest pain that was relieved by nitro. Dr. Bey wants to catheter today. I did talk to Dr. Samuel about admission after the cath. Patient will be admitted to Dr. Stacy but Jimmie will see patient today. <Jamison Bates, - Last Filed: 12/01/24 16:45> Vital Signs Vital Signs: 12/01/24 11:59 12/01/24 12:05 12/01/24 12:15 Temperature 97.9 F Temperature Source Oral Pulse Rate 71 71 Pulse Rate [Left] 71 Respiratory Rate 17 16 Blood Pressure Blood Pressure [Right Arm] 140/79 Blood Pressure Mean Blood Pressure Mean [Right Arm] 99 Blood Pressure Source [Right Arm] Automatic Cuff Blood Pressure Position [Right Arm] Supine 02 Sat by Pulse Oximetry 100 98 Oxygen Delivery Method Room Air Room Air 12/01/24 12:30 12/01/24 13:00 12/01/24 13:30 Temperature Temperature Source Pulse Rate 66 59 L 65 Pulse Rate [Left] Respiratory Rate 20 15 18 Blood Pressure 132/74 127/67 119/74 Blood Pressure [Right Arm] Blood Pressure Mean 100 88 Blood Pressure Mean [Right Arm] Blood Pressure Source [Right Arm] Blood Pressure Position [Right Arm] 02 Sat by Pulse Oximetry 97 100 99 Oxygen Delivery Method Room Air Room Air 12/01/24 13:46 12/01/24 13:51 12/01/24 13:53 Temperature Temperature Source Pulse Rate 64 77 62 Pulse Rate [Left] Respiratory Rate 16 17 16 Blood Pressure 107/61 L 90/55 L 121/68 Blood Pressure [Right Arm] Blood Pressure Mean Blood Pressure Mean [Right Arm] Blood Pressure Source [Right Arm] Blood Pressure Position [Right Arm] 02 Sat by Pulse Oximetry 98 96 94 L Oxygen Delivery Method 12/01/24 13:55 12/01/24 14:00 12/01/24 14:05 Temperature Temperature Source Pulse Rate 66 62 61 Pulse Rate [Left] Respiratory Rate 16 18 18 Blood Pressure 106/66 L 124/74 119/74 Blood Pressure [Right Arm] Blood Pressure Mean Blood Pressure Mean [Right Arm] Blood Pressure Source [Right Arm] Blood Pressure Position [Right Arm] 02 Sat by Pulse Oximetry 95 95 96 Oxygen Delivery Method 12/01/24 14:11 12/01/24 14:15 12/01/24 14:21 Temperature Temperature Source Pulse Rate 63 59 L Pulse Rate [Left] Respiratory Rate 17 18 17 Blood Pressure 114/66 128/80 138/77 Blood Pressure [Right Arm] Blood Pressure Mean Blood Pressure Mean [Right Arm] Blood Pressure Source [Right Arm] Blood Pressure Position [Right Arm] 02 Sat by Pulse Oximetry 100 97 98 Oxygen Delivery Method 12/01/24 14:25 12/01/24 14:30 12/01/24 14:35 Temperature Temperature Source Pulse Rate 58 L 64 58 L Pulse Rate [Left] Respiratory Rate 17 21 18 Blood Pressure 118/80 130/79 117/65 Blood Pressure [Right Arm] Blood Pressure Mean Blood Pressure Mean [Right Arm] Blood Pressure Source [Right Arm] Blood Pressure Position [Right Arm] 02 Sat by Pulse Oximetry 98 98 99 Oxygen Delivery Method 12/01/24 14:40 12/01/24 14:45 12/01/24 14:50 Temperature Temperature Source Pulse Rate 55 L 58 L 60 Pulse Rate [Left] Respiratory Rate 17 18 15 Blood Pressure 115/57 L 105/48 L 118/51 L Blood Pressure [Right Arm] Blood Pressure Mean 66 71 Blood Pressure Mean [Right Arm] Blood Pressure Source [Right Arm] Blood Pressure Position [Right Arm] 02 Sat by Pulse Oximetry 97 98 98 Oxygen Delivery Method Room Air Room Air 12/01/24 14:55 12/01/24 15:00 12/01/24 15:06 Temperature Temperature Source Pulse Rate 61 59 L 63 Pulse Rate [Left] Respiratory Rate 15 13 13 Blood Pressure 118/49 L 113/60 101/35 L Blood Pressure [Right Arm] Blood Pressure Mean 75 72 Blood Pressure Mean [Right Arm] Blood Pressure Source [Right Arm] Blood Pressure Position [Right Arm] 02 Sat by Pulse Oximetry 98 99 99 Oxygen Delivery Method Room Air Room Air 12/01/24 15:10 12/01/24 15:15 12/01/24 15:20 Temperature Temperature Source Pulse Rate 62 61 61 Pulse Rate [Left] Respiratory Rate 15 17 20 Blood Pressure 119/62 110/65 111/5 L Blood Pressure [Right Arm] Blood Pressure Mean 74 Blood Pressure Mean [Right Arm] Blood Pressure Source [Right Arm] Blood Pressure Position [Right Arm] 02 Sat by Pulse Oximetry 98 97 98 Oxygen Delivery Method Room Air 12/01/24 15:26 12/01/24 15:30 12/01/24 15:35 Temperature Temperature Source Pulse Rate 59 L 54 L 60 Pulse Rate [Left] Respiratory Rate 17 15 19 Blood Pressure 133/63 122/50 L 127/69 Blood Pressure [Right Arm] Blood Pressure Mean Blood Pressure Mean [Right Arm] Blood Pressure Source [Right Arm] Blood Pressure Position [Right Arm] 02 Sat by Pulse Oximetry 99 99 98 Oxygen Delivery Method 12/01/24 15:40 12/01/24 15:46 12/01/24 15:50 Temperature Temperature Source Pulse Rate 60 62 56 L Pulse Rate [Left] Respiratory Rate 18 17 17 Blood Pressure 119/65 126/75 119/64 Blood Pressure [Right Arm] Blood Pressure Mean 92 82 Blood Pressure Mean [Right Arm] Blood Pressure Source [Right Arm] Blood Pressure Position [Right Arm] 02 Sat by Pulse Oximetry 99 99 98 Oxygen Delivery Method Room Air Room Air 12/01/24 15:56 12/01/24 16:00 12/01/24 16:05 Temperature Temperature Source Pulse Rate 63 63 63 Pulse Rate [Left] Respiratory Rate 12 17 17 Blood Pressure 140/69 123/76 130/65 Blood Pressure [Right Arm] Blood Pressure Mean 92 85 91 Blood Pressure Mean [Right Arm] Blood Pressure Source [Right Arm] Blood Pressure Position [Right Arm] 02 Sat by Pulse Oximetry 98 98 98 Oxygen Delivery Method Room Air Room Air Room Air 12/01/24 16:11 12/01/24 16:17 12/01/24 16:28 Temperature 98.7 F Temperature Source Pulse Rate 89 Pulse Rate [Left] Respiratory Rate 11 L 13 17 Blood Pressure 132/70 102/41 L 121/74 Blood Pressure [Right Arm] Blood Pressure Mean Blood Pressure Mean [Right Arm] Blood Pressure Source [Right Arm] Blood Pressure Position [Right Arm] 02 Sat by Pulse Oximetry Oxygen Delivery Method Room Air Lab Data Labs: Lab Results 12/01/24 12:00: WBC 7.1, RBC 4.70, Hgb 14.8, Hct 45.3, MCV 96.4, MCH 31.5 H, MCHC 32.7, RDW 12.6, Plt Count 316, MPV 8.7, Neut % (Auto) 52.7, Lymph % (Auto) 36.4, [place] % (Auto) 6.9, Eos % (Auto) 2.8, Baso % (Auto) 1.1, Neut # (Auto) 3.7, Lymph # (Auto) 2.6, [place] # (Auto) 0.5, Eos # (Auto) 0.2, Baso # (Auto) 0.1, D- Dimer 0.43, Sodium 142, Potassium 4.0, Chloride 108 H, Carbon Dioxide 24, Anion Gap 14.0, BUN 7, Creatinine 0.80, Estimated Creat Clear 78, Estimated GFR 74, Est GFR ( Amer) 89, Glucose 102 H, Calcium 9.4, Magnesium 2.1, Total Bilirubin 0.5, AST 28, ALT 23, Alkaline Phosphatase 84, Troponin I < 0.01, Total Protein 8.6 H, Albumin 4.8, Globulin 3.8 H, Albumin/Globulin Ratio 1.3, Lipase 47 12/01/24 12:07: SARS-CoV-2 (PCR) Not detected, Influenza A Untype (PCR) Not detected, Influenza Type B (PCR) Not detected 12/01/24 14:40: Troponin I < 0.01 Response Orders (Tests/Meds): ED MEDICATIONS Discontinued Medications Generic Name Dose Route Start Last Admin Trade Name Freq PRN Reason Stop Dose Admin Aspirin 325 mg 12/01/24 12:00 12/01/24 12:15 Aspirin 325mg Tablet PO 12/01/24 12:01 325 mg ONCE ONE Administration Diazepam 5 mg 12/01/24 16:13 Diazepam 5mg Tablet PO 12/02/24 04:13 ONCE PRN Anxiety Diphenhydramine HCl 50 mg 12/01/24 16:13 12/01/24 16:45 Diphenhydramine 50mg/Ml Vial IV 12/01/24 16:14 50 mg ONCE ONE Administration Famotidine 20 mg 12/01/24 12:00 12/01/24 12:15 Famotidine 20mg/2ml Vial IV 12/01/24 12:01 20 mg ONCE ONE Administration Fentanyl Citrate 50 mcg 12/01/24 16:13 Fentanyl 100mcg/2ml Vial IV 12/02/24 04:13 Q3MINP PRN Sedation Fentanyl Citrate 25 mcg 12/01/24 16:13 Fentanyl 100mcg/2ml Vial IV 12/02/24 04:13 Q3MINP PRN Sedation Flumazenil 0.2 mg 12/01/24 16:13 Flumazenil 0.1mg/Ml 5ml Vial IV 12/02/24 04:13 NEEDED PRN Sedation Heparin Sodium (Porcine) 5,000 unit 12/01/24 16:13 12/01/24 16:45 Heparin 1,000 Units/Ml 10ml Vial (Plastics Patternmaker) IV 12/01/24 20:13 3,000 unit NEEDED PRN Administration Emergency Box Trap Operator Heparin Sodium/Sodium Chloride 3,000 unit 12/01/24 16:13 12/01/24 16:46 Heparin 1,000 Units/500ml Ns (Plastics Patternmaker) IV 12/01/24 16:14 3,000 unit ONCE ONE Administration Hydralazine HCl 20 mg 12/01/24 16:13 Hydralazine 20mg/Ml Vial IV 12/01/24 20:13 ONCE PRN sbp>160 Sodium Chloride 1,000 mls @ 999 mls/hr 12/01/24 13:58 12/01/24 15:17 Sod Chlor 0.9% 1000ml Bag IV 12/01/24 14:58 Infused .Q1H1M ONE Infusion Adenosine 180 mg/ Sodium 90 mls @ 342.916 mls/hr 12/01/24 16:13 Chloride IV 12/01/24 20:13 ONCE PRN fractional flow reserve 180 MCG/KG/MIN Adenosine 90 mg/ Sodium 90 mls @ 685.832 mls/hr 12/01/24 16:13 Chloride IV 12/01/24 20:13 ONCE PRN fractional flow reserve 180 MCG/KG/MIN Sodium Chloride 1,000 mls @ 25 mls/hr 12/01/24 16:15 12/01/24 16:46 Sod Chloride 0.9% 500ml Bag IV 12/02/24 16:13 25 mls/hr .Q25H ALESSANDRO Administration Labetalol HCl 20 mg 12/01/24 16:13 Labetalol 20mg/4ml Syringe IV 12/01/24 20:13 ONCE PRN sbp>160 Lidocaine HCl 10 ml 12/01/24 16:13 12/01/24 16:45 Lidocaine 1% 10ml Mdv IJ 12/01/24 16:14 10 ml ONCE ONE Administration Lidocaine HCl 10 ml 12/01/24 16:13 Lidocaine 1% 5ml Pf Vial IJ 12/01/24 16:14 ONCE ONE Midazolam HCl 1 mg 12/01/24 16:13 Midazolam 2mg/2ml Vial IV 12/02/24 04:13 Q3MINP PRN Sedation Midazolam HCl 1 mg 12/01/24 16:13 Midazolam Hcl 1mg/Ml 5ml Vial IV 12/02/24 04:13 Q3MINP PRN Sedation Morphine Sulfate 4 mg 12/01/24 16:13 Morphine 4mg/Ml Syringe IV 12/01/24 16:14 ONCE ONE Naloxone HCl 0.4 mg 12/01/24 16:13 Naloxone 0.4mg/Ml Vial IV 12/02/24 04:13 Q5MINP PRN Decreased Respirations Nitroglycerin 0.4 mg 12/01/24 13:38 12/01/24 13:44 Nitroglycerin 0.4mg Sl Tablet SL 12/31/24 13:37 0.4 mg Q5MINP PRN Administration Chest Pain Nitroglycerin 800 mcg 12/01/24 16:13 12/01/24 16:46 Nitroglycerin 800mcg/8ml Syr (Plastics Patternmaker) IA 12/01/24 20:13 800 mcg NEEDED PRN Administration Emergency Box Trap Operator Ondansetron HCl 4 mg 12/01/24 12:00 12/01/24 12:15 Ondansetron 4mg/2ml Vial IV 12/01/24 12:01 4 mg ONCE ONE Administration Ondansetron HCl 4 mg 12/01/24 16:13 Ondansetron 4mg/2ml Vial IV 12/02/24 04:13 NEEDED PRN Nausea Promethazine HCl 25 mg 12/01/24 16:13 Promethazine Hcl 25mg/Ml 1ml Vial IV 12/02/24 04:13 NEEDED PRN Nausea And Vomiting Protamine Sulfate 50 mg 12/01/24 16:13 Protamine Sulfate 50mg/5ml Vial (Plastics Patternmaker) IV 12/01/24 20:13 ONCE PRN act>200 Sodium Chloride 8 ml 12/01/24 12:00 Sodium Chloride 0.9% 10ml Vial IV 12/31/24 11:59 NEEDED PRN dilute pepcid Sodium Chloride 25 ml 12/01/24 16:13 Sodium Chloride 0.9% 25ml Bag IV 12/01/24 16:14 ONCE ONE Verapamil HCl 2.5 mg 12/01/24 16:13 12/01/24 16:45 Verapamil 2.5mg/Ml 2ml Vial IV 12/01/24 16:14 2.5 mg ONCE ONE Administration ORDERS Category Date Time Status Chest XR -- portable [XR chest portable] Stat Exams 12/01/24 12:00 Completed CBC [Complete Blood Count Auto Diff] Stat Lab 12/01/24 12:00 Completed Comprehensive Metabolic Panel Stat Lab 12/01/24 12:00 Completed D-Dimer Stat Lab 12/01/24 12:00 Completed Lipase Stat Lab 12/01/24 12:00 Completed Magnesium Stat Lab 12/01/24 12:00 Completed Rapid PCR Covid and Flu A/B Stat Lab 12/01/24 12:07 Completed Trop I [Troponin I] Stat Lab 12/01/24 12:00 Completed Troponin I Q3H Lab 12/01/24 14:40 Completed ECG Data Tracing #1: Attestation: I reviewed this ECG and interpreted as documented below: ECG Narrative: EKG personally turbid by me demonstrates normal sinus rhythm with a rate of 65 bpm, normal axis, no NM prolongation, narrow QRS, no QTc prolongation. No ST elevation or depression. No overt signs of ischemia or arrhythmia Tracing #2: Attestation: I reviewed this ECG and interpreted as documented below: ECG Narrative: Delta EKG was obtained given that the patient developed significant worsening of her pain. EKG was personally turbid by me and demonstrated normal sinus rhythm with a rate of 62 bpm, normal axis, no NM prolongation, narrow QRS, no QTc prolongation. No ST elevation or depression. No overt signs of ischemia or arrhythmia.
[2024-12-01 12:27] LABS: Alanine Aminotransferase 23 U/L (12-78); Albumin Level 4.8 g/dl (3.5-5.0); Albumin/Globulin Ratio 1.3 (1.1-1.8); Alkaline Phosphatase 84 U/L (38-126); Anion Gap 14.0 mEq/L (5-15); Aspartate Amino Transferase 28 U/L (14-36); Bilirubin,Total 0.5 mg/dl (0.2-1.3); Blood Urea Nitrogen 7 mg/dl (7-17); Calcium 9.4 mg/dl (8.4-10.2); Carbon Dioxide 24 mmol/L (22.0-30.0); Chloride 108 mmol/L (98-107); Creatinine Clearance Estimated 78 mL/min (50-200); Creatinine,Serum 0.80 mg/dl (0.52-1.04); Estimated Glomerular Filt Rate 74 ml/min (>60); GFR (African American) 89 ML/MIN (>60); Globulin 3.8 g/dL (1.3-3.2); Glucose 102 mg/dl (74-100); Lipase 47 U/L (23-300); Magnesium 2.1 mg/dl (1.6-2.3); Potassium 4.0 mmoL/L (3.5-5.1); Sodium 142 mmol/L (136-145); Total Protein,Serum 8.6 g/dl (6.3-8.2)
[2024-12-01 12:31] LABS: D-Dimer 0.43 ug/mL (0.0-0.5)
[2024-12-01 12:46] LABS: Troponin I < 0.01 ng/ml (0.00-0.034)
--- NOTE | 2024-12-01 13:43 | ECG_ITS ---
APPROVED REPORT Exam: Resting ECG HR:62 bpm ECG Measurements Heart Rate 62 AXES VA 151 P 80 QRSd 76 QRS 70 QT 441 T 72 QTc 447 Conclusion Normal sinus rhythm Normal axis Normal intervals No STEMI Electronically signed by : Jamison Bates, 12/01/2024 17:40:41
[2024-12-01] MEDS: NITROGLYCERIN 0.4MG SL TABLET 0.4 MG SL (13:44)
[2024-12-01] MEDS: 0.9 % SODIUM CHLORIDE 1000ML 1,000 ML 999 ML IV (14:08)
--- NOTE | 2024-12-01 14:11 | PC.NURSE ---
Patient reports chest pain has now subsided post Nitro administration. VSS. Call light in reach. Patient denies complaints at this time.
[2024-12-01 15:20] LABS: Troponin I < 0.01 ng/ml (0.00-0.034)
--- NOTE | 2024-12-01 16:25 | PC.NURSE ---
Window Cutter team at bedside, consent signed. VSS. All patient belongings given to patient's [id number] at bedside. VSS. Respirations even and unlabored. Patient denies complaints/ concerns at this time.
[2024-12-01] MEDS: LIDOCAINE 1% 10ML MDV 10 ML IJ (16:45)
[2024-12-01] MEDS: VERAPAMIL 2.5MG/ML 2ML VIAL 2.5 MG IV (16:45)
[2024-12-01] MEDS: 0.9 % SODIUM CHLORIDE 500 ML 25 ML IV (16:46)
[2024-12-01] MEDS: NITROGLYCERIN 800MCG/8ML SYR (CATH LAB) 800 MCG IA (16:46)
[2024-12-01] MEDS: HEPARIN 1,000 UNITS/500ML NS (CATH LAB) 3000 UNIT IV (16:46)
[2024-12-01] MEDS: HEPARIN 1,000 UNITS/ML 10ML VIAL (CATH LAB) 5000 UNIT IV (17:05)
[2024-12-01] MEDS: MIDAZOLAM HCL 1MG/ML 5ML VIAL 1 MG IV (17:05)
[2024-12-01] MEDS: FENTANYL 100MCG/2ML VIAL 50 MCG IV (17:05)
[2024-12-01] MEDS: IOPAMIDOL-370 (76%);100ML BOTTLE 50 ML IV (17:14)
[2024-12-01 17:16] LABS: CATHL Activated Clotting Time 314 SEC (74-125)
--- OUTSIDE RECORDS SUMMARY | 2024-12-01 17:32 | XMS_ITS | Clinical Summary ---
Author Organization [facility] Address [address] [place] [address] Care Team Providers Care Assistant Professor Of Economics Name Role Phone Orestes Stacy MD Primary Care Provider [phone] Kimmie Burks MD Unavailable Allergies Active Allergy [...] Description 09/19/2024 8:45 AM EDT Office Visit [facility] Otol[facility]ology [address] [place] [id number] Omega Limon MD History of inverted papilloma [...] [facility] Visit [facility] [address], [address] [place] [address] Omega Limon MD [address] [place] [address] Health Maintenance Due Date Last [...] 2017 [facility]-Zoster Vaccines (1 of 2) 2017 [id number] Vaccine (1 - 2023- season) 2023 [facility]-Influenza [...] this topic Medical Devices Implanted Type Area General Manager Farm Device Identifier Shelf Expiration Date Model / [...] Screen Nonreactive Nonreactive 02/09/2022 10:51 PM EST [facility] Blood Venous blood specimen / Unknown Venipuncture / Unknown 02/09/2022 9:07 PM EST 02/09/2022 9:53 PM EST Akbar Blanchard MD LAB BLOOD ORDERABLES Final Resul t [facility] [address] [place] [id number] * Hepatitis C Antibody - ED (02/09/2022 9:07 PM EST) Hepatitis C Antibody Negative Negative 02/09/2022 10:53 PM EST [facility] Blood Venous blood specimen / Unknown Venipuncture / Unknown 02/09/2022 9:07 PM EST 02/09/2022 9:53 PM EST us Akbar Blanchard MD LAB BLOOD ORDERABLES Final Resul t [facility] [address] [place] [address] from Last 3 Months or Most Recently Relevant to Health Maintenance Insurance [employer] Care Teams Assistant Professor Of Economics Relationship Specialty Start Date End Date Orestes Stacy MD [address] [place] [address] PCP - General 01/19/22 Kimmie Burks MD [address] [place] [address] Resident Neurology 06/29/22
--- OUTSIDE RECORDS SUMMARY | 2024-12-01 17:32 | XMS_ITS | Encounter Summary ---
Author Organization [facility] Address [address] [place] [address] Care Team Providers Care Double Ending Machine Operator Name Role Phone Orestes Stacy MD Primary Care Provider [phone] Kimmie Burks MD Unavailable Encounter Details Date Type Department Care Team (Late Contact Info) Description 12/23/2021 Orders Only External Location [address] [place] [address] Lester Thorne MD [address] [facility] [address] [place] [address] Social History Tobacco Use Types Packs/Day Years [...] Description 02/28/2025 1:15 PM EST [facility] Visit [facility] [address], [address] [place] [address] Omega Limon MD [address] [facility] [address] [place] [address] documented as of this encounter Procedures Procedure [...] on filedocumented in this encounter Care Teams Double Ending Machine Operator Relationship Specialty Start Date End Date Orestes Stacy MD [address] [place] [address] PCP - General 01/19/22 Kimmie Burks MD [address] [place] [address] Resident Neurology 06/29/22 documented as of this encounter
--- NOTE | 2024-12-01 17:47 | PC.NURSE ---
Pt sent to floor as SDC patient to recover then send home
--- NOTE | 2024-12-01 18:42 | PC.NURSE ---
Pt is on the floor for labor gang supervisor recovery. She is currently resting in bed. No complaints at this time. She has ambulated to the BR without difficulty. Tracelet remains in place. Initial air is 16 ml and can start being removed at 1900 per manager cath lab. Call light within reach.
--- NOTE | 2024-12-01 21:45 | PC.NURSE ---
Pt post cath vitals stable, pt has no complaints. Gauze and tegaderm dressing in place, dressing remains clean and dry at this time. Pt denies pain. Discharge instructions given, pt verbalizes understanding.
--- OUTSIDE RECORDS SUMMARY | 2024-12-02 06:15 | XMS_ITS ---
[facility] Address [address] [facility] [address] [facility] [address] [place] [id number] Care Team Providers Care Traveling Storekeeper Name Role Phone Jael Stacy Primary Care Provider Neto Samuel Unavailable [phone] REASON FOR VISIT Allgery shots Medications Medication SIG (Take, Route, Frequency, [...] Active Encounters Encounter Location Date Provider Diagnosis [facility] [address] [facility] [address] [place] [id number] 12/02/2024 Neto Samuel Allergic rhinitis, unspecified seasonality, unspecified trigger J30.9 Assessments Encounter Date Diagnosis (ICD Code) Assessment Notes Treatment Notes Treatment Clinical Notes Section Notes 12/02/2024 Allergic rhinitis, unspecified seasonality, unspecified trigger (ICD-10 - J30.9) Plan Of Treatment Next Appt Details Provider Name:Neto Rosado ry, 12/05/2024 10:45:00 AM, [address], [address], [place], [id number], Medications Administered Medication Instructions Date of Administration Dosage Notes allergy 12/02/2024 0.10 mL Cat Mix: RT Ar m allergy 12/02/2024 0.10 mL Dog Mix: LT Ar m Progress Notes * Trudy ZABALAOB: 8 (59 yo F)Acc No.[id number]:12/02/2024 Patient: Mica BERNAL Provider: Asiya Samuel M.D. :1965 A ge:59 Y S ex:Female Date:12/02/2024 Address:[id number] Pcp:Jael Stacy Subjective: * Chief Complaints: * 1 . Allgery shots. * Medical History: * Medications: T aking [...] * Treatment: * Therapeutic Injections: allergy : 0.10 mL (Route: Subcutaneous) given by Josy Cervantes on subcutaneus (Allergic rhinitis, unspecified seasonality, unspecified trigger) allergy : 0.10 mL (Route: Subcutaneous) given by Josy Cervantes on subcutaneus (Allergic rhinitis, unspecified seasonality, unspecified trigger) * Procedure Codes: 9 5117 IMMUNOTHERAPY INJECTIONS, Units: 2.00 * Images: Billing Information: * Visit Code: * Procedure Codes: 56220 IMMUNOTHERAPY INJECTIONS. Units: 2.00. * Electronic signature of Lulú Samuel MD on 12/04/2024 at 02:01 PM EDT Sign off status: Pending * Provider: Asiya Samuel M.D. Date: 0 12/02/2024 Generated for Fani ng/Fajohng/eTransmitting on: 0 12/04/2024 02:01 PM EDT
--- NOTE | 2024-12-04 10:35 | SW/DCPLANNER ---
Spoke with patient on the phone. Patient stated that she is doing good. Patient stated that she is aware of her upcoming appointments. Patient stated that she is going to product picker her new medicine today. Patient stated that she has no concerns or questions at this time. Dawood Massey
--- OUTSIDE RECORDS SUMMARY | 2024-12-04 14:01 | XMS_ITS | Patient Health Record ---
[facility] Address [address] [place] [id number] Care Team Providers Care Cake Mixer Name Role Phone Jael Stacy Primary Care Provider [phone] Neto Samuel Unavailable [phone] Irene Shabazz Unavailable [phone] Allergies Allergen (clinical drug ingredient) Drug/Non Drug [...] Active tramadol traMADol Unknown Drug Allergy Active Medications Medication SIG (Take, Route, Frequency, Duration) [...] (in the evening); Duration: 30 day(s) Active Immunizations Vaccine Route Administration Date Status Comme nts Tetanus Tdap-Adacel (over 7yrs) IM Intramuscular 12/31/2020 Administered Problems Problem Type SNOMED Code ICD Code Onset Dates Problem Status W/U Status Risk Notes Problem Sinusitis (78549253) Sinusitis (J32.9) Active confirmed Problem Anxiety (40047839) Anxiety (F41.9) Active confirmed Problem Environmental allergy (715622799) Environmental allergies (Z91.048) Active confirmed Problem Major depression, single episode (51532352) Major depressive disorder, single episode, unspecified (F32.9) Active confirmed Problem Anxiety disorder (489904135) Anxiety disorder, unspecified (F41.9) Active confirmed Problem Chronic maxillary sinusitis (99402713) Chronic maxillary sinusitis (J32.0) Active confirmed Problem Reactive depression (situational) (35517300) Situational depression (F43.21) Active confirmed Problem Panic disorder (137110955) Panic attacks (F41.0) Active confirmed Problem Tobacco user (686672570) Cigarette nicotine dependence without complication (F17.210) Active confirmed Problem Allergic rhinitis (06551485) Seasonal allergic rhinitis due to other allergic trigger (J30.89) Active confirmed Problem Allergic rhinitis (51116182) Allergic rhinitis, unspecified seasonality, unspecified trigger (J30.9) Active confirmed Vital Signs Heart Rate 74 /min 12/01/2024 Blood pressure diastolic 90 mm Hg 12/01/2024 Height 61.50 in 12/01/2024 Blood pressure systolic 130 mm Hg 12/01/2024 Encounters Encounter Location Date Provider Diagnosis [facility] [address] [facility] [address] [place], [place] [id number] 09/12/2024 Neto [place] Seasonal allergic rhinitis due to other allergic trigger J30.89 [facility] [address] [place], [place] [id number] 09/21/2024 Irene Crowdy Allergic rhinitis, unspecified seasonality, unspecified trigger J30.9 [facility] [address] [place] [id number] 09/25/2024 Neto [place] Seasonal allergic rhinitis due to other allergic trigger J30.89 [facility] [address] [facility] [address] [place], [place] [id number] 10/03/2024 Neto [place] Allergic rhinitis, unspecified seasonality, unspecified trigger J30.9 [facility] [address] [place] [id number] 10/10/2024 Neto [place] Seasonal allergic rhinitis due to other allergic trigger J30.89 [facility] [address] [place] [id number] 10/18/2024 Neto [place] Allergic rhinitis, unspecified seasonality, unspecified trigger J30.9 [facility] [address] [place] [id number] 10/26/2024 Neto [place] Seasonal allergic rhinitis due to other allergic trigger J30.89 [facility] [address] [place] [id number] 11/03/2024 Neto [place] Seasonal allergic rhinitis due to other allergic trigger J30.89 [facility] [address] [place] [id number] 11/11/2024 Neto [place] Allergic rhinitis, unspecified seasonality, unspecified trigger J30.9 [facility] [address] [place] [id number] 11/24/2024 Neto [place] Seasonal allergic rhinitis due to other allergic trigger J30.89 [facility] [address] [place] [id number] 12/01/2024 Neto [place] Chest pain, unspecified type R07.9 [facility] [address] [place] [id number] 12/02/2024 Neto [place] Allergic rhinitis, unspecified seasonality, unspecified trigger J30.9 [facility] [address] [place] [id number] 06/13/2024 Jael Stacy [facility] [address] [place] [id number] 10/03/2024 Jael Stacy Assessments Encounter Date Diagnosis (ICD Code) Assessment Notes Treatment Notes Treatment Clinical Notes Section Notes 09/12/2024 Seasonal allergic rhinitis due to other allergic trigger (ICD-10 - J30.89) 09/21/2024 Allergic rhinitis, unspecified seasonality, unspecified trigger (ICD-10 - J30.9) 10/03/2024 Allergic rhinitis, unspecified seasonality, unspecified trigger (ICD-10 - J30.9) 10/18/2024 Allergic rhinitis, unspecified seasonality, unspecified trigger (ICD-10 - J30.9) 10/26/2024 Seasonal allergic rhinitis due to other allergic trigger (ICD-10 - J30.89) 11/03/2024 Seasonal allergic rhinitis due to other allergic trigger (ICD-10 - J30.89) 11/11/2024 Allergic rhinitis, unspecified seasonality, unspecified trigger (ICD-10 - J30.9) 11/24/2024 Seasonal allergic rhinitis due to other allergic trigger (ICD-10 - J30.89) 12/01/2024 Chest pain, unspecified type (ICD-10 - R07.9) Patient taken to ER for further evaluation 12/02/2024 Allergic rhinitis, unspecified seasonality, unspecified trigger (ICD-10 - J30.9) 10/10/2024 Seasonal allergic rhinitis due to other allergic trigger (ICD-10 - J30.89) 09/25/2024 Seasonal allergic rhinitis due to other allergic trigger (ICD-10 - J30.89) Plan Of Treatment Next Appt Details Provider Name:Neto Rosado ry, 12/05/2024 10:45:00 AM, [address] [facility], [address], [place], [place], [id number], Insurance Providers Payer Name Payer Address Payer Phone Subscriber Number Group Number Insured Name Patient Relationship to Insured Coverage Start Date Coverage End Date [employer] [facility] [address] [place], [place] [id number] [phone] [id number] Mica Zabala Self - patient is the insured Medications Administered Medication Instructions Date of Administration Dosage Notes allergy 09/12/2024 0.5 mL allergy 09/12/2024 0.5 mL allergy 09/12/2024 0.5 mL allergy 09/21/2024 0.05 mL allergy 09/21/2024 0.05 mL allergy 09/25/2024 0.10 mL allergy 09/25/2024 0.10 mL allergy 10/03/2024 0.20 mL Cat, Mite: LT Arm allergy 10/03/2024 0.20 mL allergy 10/10/2024 0.3 mL Cat- bharat allergy 10/10/2024 0.3 mL dog-ru allergy 10/18/2024 0.35 mL Cat, Mite Mix: BHARAT allergy 10/18/2024 0.35 mL Dog Mix: RU allergy 10/26/2024 0.35 mL allergy 10/26/2024 0.35 mL allergy 11/03/2024 0.35 mL Dog mix RA allergy 11/03/2024 0.35 mL cat mix LA allergy 11/11/2024 0.35 mL Dog Mix: LT Ar m allergy 11/11/2024 0.35 mL Cat Mix: RT Ar m allergy 11/24/2024 0.05 mL allergy 11/24/2024 0.05 mL allergy 12/02/2024 0.10 mL Cat Mix: RT Ar m allergy 12/02/2024 0.10 mL Dog Mix: LT Ar m B-12 07/08/2011 1 mL Medical (General) History Medical History History ICD Code Anxiety Cigarette Nicotine Dependence Panic Attacks Seasonal Allergic Rhinitis Chronic Maxillary Sinusitis Major Depressive Disorder Surgical History Surgery Date(Month/Year) C section 1986 ganglion cyst 1986.1988 scar revision 1994 tubal ligation 1994 cholecystectomy 2003 sinus x 2 2005 Hysterectomy 2015 sinus surgery 01/2022 Hospitalization History Reason Date(Month/Year)
--- OUTSIDE RECORDS SUMMARY | 2024-12-04 14:01 | XMS_ITS | Clinical Summary ---
Author Organization [facility] Address [address] [place] [address] [address] Team [address] Care [address] Man Name Role Phone Orestes Stacy MD Primary Care Provider [phone] Kimmie Burks MD Unavailable Allergies Active Allergy [...] Description 09/19/2024 8:45 AM EDT Office Visit [facility] Otolaryngology [address], [address] [place] [address] Omega Limon MD History of inverted papilloma [...] Description 02/28/2025 1:15 PM EST Office Visit [facility] [address], [address] [place] [address] Omega Limon MD [address] [place] [address] Health Maintenance Due Date Last [...] 2017 UKY-Zoster Vaccines (1 of 2) 2017 FOL-KICID-60 Vaccine (1 - season) 2024 UKY-Influenza Vaccine [...] this topic Medical Devices Implanted Type Area Manager Of Product Device Identifier Shelf Expiration Date Model / [...] Screen Nonreactive Nonreactive 02/09/2022 10:51 PM EST [facility] Blood Venous blood specimen / Unknown Venipuncture / Unknown 02/09/2022 9:07 PM EST 02/09/2022 9:53 PM EST Akbar Blanchard MD LAB BLOOD ORDERABLES Final Resul t [facility] [address] [place] [address] * Hepatitis C Antibody - ED (02/09/2022 9:07 PM EST) Hepatitis C Antibody Negative Negative 02/09/2022 10:53 PM EST [facility] Blood Venous blood specimen / Unknown Venipuncture / Unknown 02/09/2022 9:07 PM EST 02/09/2022 9:53 PM EST us Akbar Blanchard MD LAB BLOOD ORDERABLES Final Resul t [facility] [address] [place] [address] from Last 3 Months or Most Recently Relevant to Health Maintenance Insurance [employer] Care Teams Drive Man Relationship Specialty Start Date End Date Orestes Stacy MD [address] [place] [address] PCP - General 01/19/22 Kimmie Burks MD [address] [place] [address] Resident Neurology 06/29/22
--- OUTSIDE RECORDS SUMMARY | 2024-12-04 14:02 | XMS_ITS | Encounter Summary ---
Author Organization [facility] Address [address] [place] [address] Care Team Providers Care Consultant In Ergonomics And Safety Name Role Phone Orestes Stacy MD Primary Care Provider [phone] Kimmie Burks MD Unavailable Encounter Details Date Type Department Care Team (Late Contact Info) Description 12/23/2021 Orders Only External Location [address] [place] [address] Lester Thorne MD [address] [facility] [address] [place] [address] Social History Tobacco Use Types Packs/Day Years [...] Office Visit [facility] [address], [address] [place] [address] Omega Limon MD [address] [facility] [address] [place] [address] documented as of this encounter Procedures Procedure [...] on filedocumented in this encounter Care Teams Consultant In Ergonomics And Safety Relationship Specialty Start Date End Date Orestes Stacy MD [address] [place] [address] PCP - General 01/19/22 Kimmie Burks MD [address] [place] [address] Resident Neurology 06/29/22 documented as of this encounter
== END 2024-12-01 21:56 | disposition home or self-care (01) ==
LOC: CATHLAB 17:30 → ER 17:30
PROVIDERS: Nurse Practitioner; Emergency Provider Student in an Organized Health Care Education/Training Program; PCP Family Medicine; Visit Provider Internal Medicine
PROC: 4A023N7 Measurement of Cardiac Sampling and Pressure, Left Heart, Percutaneous Approach (ICD-10-PCS; CPT 93452; principal; 2024-12-01 10:30)
DX: I25.118 Atherosclerotic heart disease of native coronary artery with other forms of angina pectoris (principal); R06.02 Shortness of breath; Z79.899 Other long term (current) drug therapy; F17.200 Nicotine dependence, unspecified, uncomplicated; Z88.1 Allergy status to other antibiotic agents; Z88.5 Allergy status to narcotic agent; Z88.0 Allergy status to penicillin; Z88.2 Allergy status to sulfonamides; Z88.8 Allergy status to other drugs, medicaments and biological substances; Z82.49 Family history of ischemic heart disease and other diseases of the circulatory system
CPT/HCPCS: 71045; 80053; 83690; 83735; 84484; 85025; 85347; 85378; 87636; 92978; 93005; 93458; 99152; 99285; C1725; C1769; G0378; J1200; J1644; J2250; J2405; J3010; J7030; J7040; Q9967

== ENCOUNTER 2024-12-03 11:52 | Emergency (ER) | payer OTHER, SELFPAY ==
[2024-12-03] VITALS (7 sets, daily range): BP systolic 117–158; BP diastolic 66–97; PULSE 63–82; RESP 15–21; TEMP 36.6–36.7; O2SAT 95–100; BMI 30.9
--- NOTE | 2024-12-03 11:51 | ECG_ITS ---
APPROVED REPORT Exam: Resting ECG HR:73 bpm ECG Measurements Heart Rate 73 AXES NH 134 P 64 QRSd 78 QRS 69 QT 391 T 67 QTc 416 Conclusion SINUS RHYTHM NORMAL ECG UNCONFIRMED REPORT Electronically signed by : Hal Go, 12/03/2024 16:10:09
--- NOTE | 2024-12-03 11:59 | HMH.EDGENADL ---
Discharge Plan Disposition Patient Disposition: Home, Self-Care Condition: Good Prescriptions Prescriptions: New acetaminophen 500 mg capsule 1,000 mg PO Q6H 7 Days Qty: 56 0RF methocarbamol 750 mg tablet 750 mg PO TID Qty: 30 0RF lidocaine 5 % adhesive patch,medicated 1 patch topical DAILY Qty: 30 0RF Rx Instructions: leave on most painful area for up to 12 hrs Referrals Follow up/Referrals: Neto Samuel MD [Primary Care Provider, Medical] - See instructions Activity Restrictions/Add. Instructions Additional Instructions/Restrictions: Stay well-hydrated. Call cardiology and schedule a follow-up appointment. Please follow up with your primary care provider in 2-3 days. Please return to ED if your symptoms worsen, change in location, change in severity, new symptoms develop or if you become concerned for your health. Clinical Impressions Clinical Impression: Acute costochondritis Print Language Print Language: Panamanian Discharge ED Provider: Hal Go General Adult HPI General Chief complaint: Chest Pain Stated complaint: CP Time Seen by Provider: 12/03/24 11:59 History of Present Illness HPI narrative: Patient is a 59-year-old female with history of gastritis. She did present on Wednesday, per my review of EMR records and cath report, was seen and had negative troponins at that time, but was admitted for concerning chest pain history. She had a catheterization performed that was grossly normal with nonobstructive coronary disease, no interventions were had. She presents again today for chest pain that woke her up from her sleep, it is anterior in nature and does not radiate. It is worse on palpation. She denies any trauma to the area and denies any rashes. She denies any shortness of breath. She reports that it does get worse on exertion occasionally, but not always. She denies any recent fevers cough congestion runny nose vomiting diarrhea. Related Data Previous Rx's ?Medication ?Instructions ?Recorded acetaminophen 500 mg capsule 1,000 mg (2 x 500 mg) PO Q6H 7 12/03/24 days #56 caps lidocaine 5 % topical patch 1 patch topical DAILY #30 ea 12/03/24 methocarbamol 750 mg tablet 750 mg PO TID #30 tabs 12/03/24 Allergies Allergy/AdvReac Type Severity Reaction Status Date / Time doxycycline Allergy Mild Verified 01/14/22 09:56 acetaminophen (From Percocet) Allergy Verified 01/14/22 09:56 amoxicillin Allergy Verified 01/14/22 10:07 cefdinir Allergy Verified 01/14/22 10:07 codeine Allergy Verified 01/14/22 09:56 hydrocodone (From Lortab) Allergy Verified 01/14/22 09:56 levofloxacin Allergy Verified 01/14/22 10:07 meloxicam Allergy Verified 01/14/22 09:56 naproxen Allergy Verified 01/14/22 10:07 Opioids - Morphine Analogues Allergy Verified 01/14/22 09:56 oxycodone (From Percocet) Allergy Verified 01/14/22 09:56 Penicillins Allergy Verified 01/14/22 09:56 propoxyphene (From Allergy Verified 01/14/22 10:07 Darvocet-N) Sulfa (Sulfonamide Allergy Verified 01/14/22 09:56 Antibiotics) tramadol Allergy Verified 01/14/22 10:07 PFSH PFSH Disclaimer: The information contained in this section may have been updated after the patient was seen, as this information can be updated by other users. Medical History (Updated 12/03/24 @ 15:19 by Hal Go MD) Urinary tract infection Anxiety Allergies History of anemia Mass of sinus Papilloma of nasopharynx Sore throat Migraine Surgical History (Updated 01/15/22 @ 14:43 by Tri Cervantes RN) H/O breast augmentation History of sinus surgery History of tubal ligation History of hysterectomy History of section History of cholecystectomy Family History (Updated 01/15/22 @ 14:44 by Tri Cervantes RN) Mother Colon cancer Family history of myocardial infarction Family history of diabetes mellitus type II Social History (Updated 01/15/22 @ 14:45 by Tri Cervantes RN) Smoking Status: Current every day smoker alcohol intake: never current occupational status: unemployed Travel in the last 8 weeks?: None do you feel safe at home: Yes victim of physical abuse: No victim of emotional abuse: No victim of sexual abuse: No would you like helpful sources: No Have you lived/traveled outside US in past 30 days?: No Contact w/someone who lives/traveled outside US past 30 days?: No Exposure to someone with infectious disease in past 14 days?: No Do you have a fever (greater than 100.4 F or 38 C)?: No Have you tested positive for COVID-19?: No Exposed to someone with COVID-19 in past 14 days?: No Do you have a sore throat?: No Do you have a cough?: No Do you have any weakness?: No Do you have any diarrhea?: No Are you experiencing any unusual bleeding?: No Do you have any muscle aches/pain?: No Do you have any abdominal pain?: No Are you experiencing loss of taste or smell?: No Other Medical History Have you received the Flu Vaccine for this season: No Have you received the Pneumonia Vaccine: No ROS Obtained: Yes All systems reviewed & no additional complaints except as documented Physical Exam General General appearance: alert and in no apparent distress Head Head exam: atraumatic and normocephalic Eye Eye exam: Present PERRL and EOMI ENT ENT exam: Present normal oropharynx Neck Neck exam: Present full ROM and trachea midline Chest Chest inspection: Present symmetric chest wall rise and tenderness (Chest wall tenderness at the costochondral junction) Respiratory Respiratory exam: Present normal lung sounds bilaterally; Absent wheezes, stridor or accessory muscle use Cardiovascular Cardiovascular exam: Present regular rate and normal rhythm Abdominal Exam Abdominal exam: Present soft; Absent distention or tenderness Extremities Exam Extremities exam: Present full ROM Neurological Exam Neurological exam: Present alert and oriented X3 Psychiatric Psychiatric exam: Present normal mood Skin Skin exam: Present warm and dry Medical Decision Making Medical Records Screening: Per USPSTF and CDC recommendations, given the prevalence of disease in our region, it is our hospital?s policy to screen for HIV and viral Hepatitis for all patients aged 18 and over and those with ongoing risk factors. Alexander Inquiry Pt receiving controlled substance: No Vital Signs: 12/03/24 11:59 12/03/24 12:01 12/03/24 12:30 Temperature 98.1 F Temperature Source Oral Pulse Rate 70 75 Pulse Rate [Left Radial] 82 Respiratory Rate 20 21 15 Blood Pressure 122/66 120/66 Blood Pressure [Right Arm] 158/88 H Blood Pressure Mean [Right Arm] 111 02 Sat by Pulse Oximetry 100 98 96 Oxygen Delivery Method Room Air 12/03/24 13:30 12/03/24 14:00 12/03/24 14:30 Temperature Temperature Source Pulse Rate 82 72 Pulse Rate [Left Radial] Respiratory Rate 20 18 21 Blood Pressure 122/72 132/97 H 117/70 Blood Pressure [Right Arm] Blood Pressure Mean [Right Arm] 02 Sat by Pulse Oximetry 95 97 Oxygen Delivery Method Lab Data Lab Results 12/03/24 11:55: WBC 7.0, RBC 4.58, Hgb 15.0, Hct 43.7, MCV 95.4, MCH 32.8 H, MCHC 34.3, RDW 12.4, Plt Count 318, MPV 9.1, Neut % (Auto) 58.6, Lymph % (Auto) 31.6, [place] % (Auto) 6.9, Eos % (Auto) 1.7, Baso % (Auto) 0.9, Neut # (Auto) 4.1, Lymph # (Auto) 2.2, [place] # (Auto) 0.5, Eos # (Auto) 0.1, Baso # (Auto) 0.1, Sodium 140, Potassium 4.0, Chloride 108 H, Carbon Dioxide 24, Anion Gap 12.0, BUN 9 D, Creatinine 0.80, Estimated Creat Clear 77, Estimated GFR 74, Est GFR ( Amer) 89, Glucose 149 H, Calcium 9.6, Magnesium 1.9, Total Bilirubin 0.4, AST 28, ALT 24, Alkaline Phosphatase 77, Troponin I 0.08 H, Total Protein 8.1, Albumin 4.8, Globulin 3.3 H, Albumin/Globulin Ratio 1.5 12/03/24 14:16: Troponin I 0.08 H 12/03/24 11:55 12/03/24 11:55 Orders (Tests/Meds): ED MEDICATIONS Discontinued Medications Generic Name Dose Route Start Last Admin Trade Name Pjq PRN Reason Stop Dose Admin Aspirin 324 mg 12/03/24 12:29 12/03/24 12:39 Aspirin 81mg Chewable Tablet PO 12/03/24 12:30 324 mg ONCE ONE Administration Belladonna Alkaloids 60 ml 12/03/24 12:13 12/03/24 12:15 Belladonna Alkaloids 60 Ml Ml PO 12/03/24 12:14 60 ml ONCE ONE Administration Iopamidol 80 ml 12/03/24 12:56 12/03/24 12:58 Iopamidol-370 (76%);100ml Bottle IV 12/03/24 12:57 80 ml ONCE ONE Administration Lidocaine 1 each 12/03/24 12:29 12/03/24 12:39 Lidocaine 5% Transdermal Patch TD 12/03/24 12:30 1 each ONCE ONE Administration Methocarbamol 1,000 mg 12/03/24 13:59 12/03/24 14:33 Methocarbamol 500mg Tablet PO 12/03/24 14:00 Not Given ONCE ONE Morphine Sulfate 4 mg 12/03/24 14:21 12/03/24 14:37 Morphine 4mg/Ml Syringe IV 12/03/24 14:22 4 mg ONCE ONE Administration Ondansetron HCl 4 mg 12/03/24 14:21 12/03/24 14:37 Ondansetron 4mg/2ml Vial IV 12/03/24 14:22 4 mg ONCE ONE Administration Oxycodone HCl 5 mg 12/03/24 13:59 12/03/24 14:34 Oxycodone 5mg Immediate Release Tablet PO 12/03/24 14:00 Not Given ONCE ONE Sodium Chloride 10 ml 12/03/24 12:56 12/03/24 12:58 Sodium Chloride 0.9% 10ml Syr (Rad Only) IV 12/03/24 12:57 10 ml ONCE ONE Administration Sodium Chloride 50 ml 12/03/24 12:56 12/03/24 12:58 0.9 % Sodium Chloride 50 Ml Vial IV 12/03/24 12:57 50 ml ONCE ONE Administration ORDERS Category Date Time Status CTA Chest [CT angio chest PE protocol] Stat Cat Scan 12/03/24 12:29 Completed CBC w/Auto Diff [Complete Blood Count Auto Diff] Stat Lab 12/03/24 11:55 Completed CMP [Comprehensive Metabolic Panel] Stat Lab 12/03/24 11:55 Completed MAG [Magnesium] Stat Lab 12/03/24 11:55 Completed Trop I [Troponin I] Stat Lab 12/03/24 11:55 Completed Troponin I Q3H Lab 12/03/24 14:16 Completed Troponin I Q3H Lab 12/03/24 18:30 Ordered ECG Data Tracing #1: Independently interpreted by myself demonstrate normal sinus rhythm with no obvious acute ischemic ST change. Intervals within normal limits. HEART Score History (anamnesis): Slightly suspicious ECG: Normal Age: 45-65 years Risk factors: No known risk factors Troponin: 1-3x normal limit HEART Score: 2 Medical Decision Narrative: In summary, this 59-year-old female presents to the emergency department today with chest pain. On initial evaluation patient is afebrile, hemodynamically stable, in no acute distress. On exam, is warm well-perfused for pulses brisk capillary refill. She has no lower extremity edema. Heart is regular rate and rhythm lung sounds are clear to station bilaterally. She does have anterior chest wall tenderness right at the costochondral junction, there is no rashes or erythema. No paradoxical wall movement. No crepitus. I suspect costochondritis clinically, but given her recent cardiac catheterization, will proceed with ACS workup as well as cross-sectional imaging to evaluate for pulmonary embolism.. Hematologic labs reviewed by myself demonstrate no evidence of anemia no leukocytosis no VICENTA no electrolyte derangement. Troponins are flat at 0.08. Independently interpreted the CT PE demonstrate no evidence of pulmonary embolism and is confirmed on the radiologist final read. I had a lengthy interactive discussion with Dr. Bey regarding this patient. He reports that her catheterization demonstrated nonobstructive coronary artery disease. Given that she is not demonstrating any pulmonary embolus and her troponins are flat, he feels comfortable with discharge and will follow her up in clinic. On reassessment after above inventions reports improvement in her pain. Of note, social determinants of health include poor health literacy. At this time it was felt that the patient was safe to be discharged home. The patient was in agreement with this plan. The patient was given strict return precautions prior to being discharged from the emergency department. Critical Care Critical Care Time Critical Care Time: No
--- OUTSIDE RECORDS SUMMARY | 2024-12-03 12:13 | XMS_ITS | Encounter Summary ---
Author Organization [facility] Address [address] [place] [address] Care Team Providers Care Angular Js Developer Name Role Phone Orestes Stacy MD Primary Care Provider [phone] Kimmie Burks MD Unavailable Encounter Details Date Type Department Care Team (Late Contact Info) Description 12/23/2021 Orders Only External Location [address] [place] [address] Lester Thorne MD [address] [facility] [address] [place] [address] Social History Tobacco Use Types Packs/Day Years [...] Description 02/28/2025 1:15 PM EST [facility] [address] [place] [address] Omega Limon MD [address] [facility] [address] [place] [address] documented as of this encounter Procedures Procedure Name Priority Date/Time Associated Diagnosis Comments CT NEURO OUTSIDE IMAGES 12/23/2021 1:32 PM EDT documented in this encounter Results * CT NEURO OUTSIDE IMAGES (12/23/2021 1:32 PM EDT) Anatomical Region Laterality Modality Computed Tomogra phy 12/23/2021 1:32 PM EDT Lester Thorne MD IMG CT PROCEDURES Final Resul t documented in this encounter Visit Diagnoses Not on filedocumented in this encounter Care Teams Angular Js Developer Relationship Specialty Start Date End Date Orestes Stacy MD [address] [place] [address] PCP - General 01/19/22 Kimmie Burks MD [address] [place] [id number] Resident Neurology 06/29/22 documented as of this encounter
--- OUTSIDE RECORDS SUMMARY | 2024-12-03 12:13 | XMS_ITS | Clinical Summary ---
Author Organization [facility] Address [address] [place] [address] Care Team Providers Care Technology Officer Name Role Phone Orestes Stacy MD Primary Care Provider [phone] Kimmie Burks MD Unavailable Allergies Active Allergy [...] Description 09/19/2024 8:45 AM EDT Office Visit [facility] Otolaryngology [address] [place] [id number] Omega Limon MD History of inverted papilloma [...] Description 02/28/2025 1:15 PM EST Office Visit [facility] [address] [place] [address] Omega Limon MD [address] [place] [address] Health Maintenance Due Date Last [...] 2017 [facility]-Zoster Vaccines (1 of 2) 2017 [facility]-IFAMH-30 Vaccine (1 - season) 2024 [facility]-Influenza Vaccine (#1) 2024 [facility]-DTaP,Tdap,and Td Vaccines [...] this topic Medical Devices Implanted Type Area Commercial Loan Manager Device Identifier Shelf Expiration Date Model / [...] Screen Nonreactive Nonreactive 02/09/2022 10:51 PM EST [facility] Blood Venous blood specimen / Unknown Venipuncture / Unknown 02/09/2022 9:07 PM EST 02/09/2022 9:53 PM EST Akbar Blanchard MD LAB BLOOD ORDERABLES Final Resul t [facility] [address] [place] [id number] * Hepatitis C Antibody - ED (02/09/2022 9:07 PM EST) Hepatitis C Antibody Negative Negative 02/09/2022 10:53 PM EST [facility] Blood Venous blood specimen / Unknown Venipuncture / Unknown 02/09/2022 9:07 PM EST 02/09/2022 9:53 PM EST us Akbar Blanchard MD LAB BLOOD ORDERABLES Final Resul t [facility] [address] [place] [address] from Last 3 Months or Most Recently Relevant to Health Maintenance Insurance [employer]ICA[employer] Care Teams Technology Officer Relationship Specialty Start Date End Date Orestes Stacy MD [address] [place] [address] PCP - General 01/19/22 Kimmie Burks MD [address] [place] [address] Resident Neurology 06/29/22
[2024-12-03] MEDS: BELLADONNA ALKALOIDS 60 ML ML PO (12:15)
--- NOTE | 2024-12-03 12:29 | CT_ITS ---
PROCEDURE INFORMATION: Exam: CTA Chest With Contrast Exam date and time: 12/03/2024 12:59 PM Age: 59 years old Clinical indication: Pain; Other: Cp; Additional info: Pleuritic cp TECHNIQUE: Imaging protocol: Computed tomographic angiography of the chest with contrast. Exam focused on the arteries. 3D rendering (Not supervised by radiologist): MIP and/or 3D reconstructed images were created by the technologist. Radiation optimization: All CT scans at this facility use at least one of these dose optimization techniques: automated exposure control; mA and/or kV adjustment per patient size (includes targeted exams where dose is matched to clinical indication); or iterative reconstruction. Contrast material: ISOVUE; Contrast volume: 80 ml; Contrast route: INTRAVENOUS (IV); COMPARISON: CR XR CHEST PORTABLE 12/01/2024 12:24 PM FINDINGS: Pulmonary arteries: No evidence of pulmonary embolus to the segmental level. Aorta: No aneurysm of the aorta. No dissection of the aorta. Lungs: Unremarkable. No consolidation. No masses. Pleural spaces: Unremarkable. No pneumothorax. No pleural effusion. Heart: Coronary artery calcifications may indicate coronary artery disease. . No cardiomegaly. No pericardial effusion. Lymph nodes: Unremarkable. No enlarged lymph nodes. Gallbladder and biliary ducts: Cholecystectomy Bones/joints: Unremarkable. No acute fracture. Soft tissues: Bilateral breast augmentation IMPRESSION: 1. No evidence of pulmonary embolus to the segmental level. 2. No aneurysm of the aorta. 3. No dissection of the aorta.
[2024-12-03 12:36] LABS: Hematocrit 43.7 % (37.0-47.0); Hemoglobin 15.0 g/dL (12.2-16.2); Immature Granulocytes % 0.3 %; Mean Corpuscular HGB Conc 34.3 g/dL (31.8-35.4); Mean Corpuscular Hemoglobin 32.8 pg (27.0-31.2); Mean Corpuscular Volume 95.4 fl (81-99); Nucleated Red Blood Cells % 0 %; Platelet Count 318 K/mm3 (142-424); Red Blood Count 4.58 M/mm3 (4.20-5.40); Red Cell Distribution Width-SD 43.4 fL; White Blood Count 7.0 K/mm3 (4.8-10.8)
[2024-12-03 12:39] LABS: Albumin Level 4.8 g/dl (3.5-5.0); Chloride 108 mmol/L (98-107); Potassium 4.0 mmoL/L (3.5-5.1); Sodium 140 mmol/L (136-145)
[2024-12-03] MEDS: LIDOCAINE 5% TRANSDERMAL PATCH 1 EACH TD (12:39)
[2024-12-03] MEDS: ASPIRIN 81MG CHEWABLE TABLET 324 MG PO (12:39)
[2024-12-03 12:42] LABS: Alanine Aminotransferase 24 U/L (12-78); Albumin/Globulin Ratio 1.5 (1.1-1.8); Alkaline Phosphatase 77 U/L (38-126); Anion Gap 12.0 mEq/L (5-15); Aspartate Amino Transferase 28 U/L (14-36); Bilirubin,Total 0.4 mg/dl (0.2-1.3); Blood Urea Nitrogen 9 mg/dl (7-17); Carbon Dioxide 24 mmol/L (22.0-30.0); Creatinine Clearance Estimated 77 mL/min (50-200); Creatinine,Serum 0.80 mg/dl (0.52-1.04); Estimated Glomerular Filt Rate 74 ml/min (>60); GFR (African American) 89 ML/MIN (>60); Globulin 3.3 g/dL (1.3-3.2); Magnesium 1.9 mg/dl (1.6-2.3); Total Protein,Serum 8.1 g/dl (6.3-8.2)
[2024-12-03 12:43] LABS: Calcium 9.6 mg/dl (8.4-10.2); Glucose 149 mg/dl (74-100)
[2024-12-03 12:54] LABS: Troponin I 0.08 ng/ml (0.00-0.034)
[2024-12-03] MEDS: 0.9 % SODIUM CHLORIDE 50 ML VIAL IV (12:58)
[2024-12-03] MEDS: IOPAMIDOL-370 (76%);100ML BOTTLE 80 ML IV (12:58)
[2024-12-03] MEDS: SODIUM CHLORIDE 0.9% 10ML SYR (RAD ONLY) 10 ML IV (12:58)
[2024-12-03] MEDS: MORPHINE 4MG/ML SYRINGE 4 MG IV (14:37)
[2024-12-03] MEDS: ONDANSETRON 4MG/2ML VIAL 4 MG IV (14:37)
[2024-12-03 14:42] LABS: Troponin I 0.08 ng/ml (0.00-0.034)
== END 2024-12-03 15:28 | disposition home or self-care (01) ==
PROVIDERS: Emergency Provider Emergency Medicine; PCP Family Medicine
DX: R07.89 Other chest pain (principal); M94.0 Chondrocostal junction syndrome [Tietze]; F17.200 Nicotine dependence, unspecified, uncomplicated
CPT/HCPCS: 71275; 80053; 83735; 84484; 85025; 93005; 96374; 96375; 99285; J2270; J2405; Q9967

== ENCOUNTER 2024-12-05 09:50 | Outpatient (CLI) | payer OTHER, SELFPAY ==
--- OUTSIDE RECORDS SUMMARY | 2024-12-05 10:00 | XMS_ITS | Encounter Summary ---
Author Organization [facility] Address [address] [place] [address] Care Team Providers Care Fisheries Technical Officer Name Role Phone Orestes Stacy MD Primary Care Provider [phone] Kimmie Burks MD Unavailable Encounter Details Date Type Department Care Team (Late Contact Info) Description 12/23/2021 Orders Only External Location [address] [place] [address] Lester Thorne MD [address] [facility] [address] [place] [address] Social History Tobacco Use Types Packs/Day Years [...] Description 02/28/2025 1:15 PM EST Office Visit [facility] [address], [address] [place] [address] Omega Limon MD [address] [facility] [address] [place] [address] documented as of this encounter Procedures Procedure [...] on filedocumented in this encounter Care Teams Fisheries Technical Officer Relationship Specialty Start Date End Date Orestes Stacy MD [address] [place] [address] PCP - General 01/19/22 Kimmie Burks MD [address] [place] [address] Resident Neurology 06/29/22 documented as of this encounter
--- OUTSIDE RECORDS SUMMARY | 2024-12-05 10:00 | XMS_ITS | Clinical Summary ---
Author Organization [facility] Address [address] [place] [address] Care Team Providers Care Steno Pool Supervisor Name Role Phone Orestes Stacy MD Primary Care Provider [phone] Kimmie Burks MD Unavailable Allergies Active Allergy [...] Description 09/19/2024 8:45 AM EDT Office Visit [facility] Otolaryngology [address], [address] [place] [address] Omega Limon MD History of inverted papilloma [...] Description 02/28/2025 1:15 PM EST Office Visit [facility] [address], [address] [place] [address] Omega Limon MD [address] [place] [address] Health Maintenance Due Date Last [...] 2017 UKY-Zoster Vaccines (1 of 2) 2017 [id number]-[id number] Vaccine (1 - season) 2024 UKY-Influenza Vaccine [...] this topic Medical Devices Implanted Type Area Mechanical Systems Engineer Device Identifier Shelf Expiration Date Model / [...] Screen Nonreactive Nonreactive 02/09/2022 10:51 PM EST [facility] Blood Venous blood specimen / Unknown Venipuncture / Unknown 02/09/2022 9:07 PM EST 02/09/2022 9:53 PM EST Akbar Blanchard MD LAB BLOOD ORDERABLES Final Resul t [facility] [address] [place] [address] * Hepatitis C Antibody - ED (02/09/2022 9:07 PM EST) Hepatitis C Antibody Negative Negative 02/09/2022 10:53 PM EST [facility] Blood Venous blood specimen / Unknown Venipuncture / Unknown 02/09/2022 9:07 PM EST 02/09/2022 9:53 PM EST us Akbar Blanchard MD LAB BLOOD ORDERABLES Final Resul t [facility] [address] [place] [address] from Last 3 Months or Most Recently Relevant to Health Maintenance Insurance [employer] Care Teams Steno Pool Supervisor Relationship Specialty Start Date End Date Orestes Stacy MD [address] [place] [address] PCP - General 01/19/22 Kimmie Burks MD [address] [place] [address] Resident Neurology 06/29/22
[2024-12-05 10:53] LABS: Alanine Aminotransferase 26 U/L (12-78); Albumin Level 4.7 g/dl (3.5-5.0); Alkaline Phosphatase 74 U/L (38-126); Aspartate Amino Transferase 27 U/L (14-36); Bilirubin,Direct 0.3 mg/dl (0.0-0.4); Bilirubin,Indirect 0.3 mg/dL (0.0-0.9); Bilirubin,Total 0.6 mg/dl (0.2-1.3); Bilirubin,Unconjugated 0.3 mg/dL (0.0-1.1); Cholesterol 215 mg/dl (140-200); HDL Cholesterol 45 mg/dl (40-60); Total Protein,Serum 7.7 g/dl (6.3-8.2); Triglycerides 95 mg/dl (30-150)
== END 2024-12-05 23:59 | disposition home or self-care (01) ==
LOC: LAB 09:52
PROVIDERS: PCP Family Medicine; Visit Provider Nurse Practitioner
DX: I20.89 Other forms of angina pectoris (principal); M94.0 Chondrocostal junction syndrome [Tietze]
CPT/HCPCS: 36415; 80061; 80076

== ENCOUNTER 2024-12-29 00:07 | Emergency (ER) | payer OTHER, SELFPAY ==
--- OUTSIDE RECORDS SUMMARY | 2024-12-05 06:45 | XMS_ITS ---
Author [facility] Address [address] [place] [id number] Care Team Providers Care Associate Scientist Name Role Phone Jael Stacy Primary Care Provider Neto Samuel Unavailable [phone] Allergies Allergen (clinical drug ingredient) Drug/Non Drug [...] Unknown Drug Allergy Active REASON FOR VISIT [facility] F/U Medications Medication SIG (Take, Route, Frequency, [...] HOURS NEEDED; Duration: 9 Active Vital Signs Weight 139.6 lbs 12/05/2024 Blood pressure systolic 140 mm Hg 12/06/19 25 Blood pressure diastolic 80 mm Hg 025 Heart Rate 69 /min 12/05/2024 Height 61.50 in 12/05/2024 BMI 25.95 kg/m2 12/05/2024 Encounters Encounter Location Date Provider Diagnosis [facility] [address] [facility] 36 [facility] [address] [place] [id number] 12/05/2024 Neto Samuel Atypical chest pain R07.89 Assessments Encounter Date Diagnosis (ICD Code) Assessment Notes Treatment Notes Treatment Clinical Notes Section Notes 12/05/2024 Atypical chest pain (ICD-10 - R07.89) Patient to see cardiology at [facility] in 2 weeks Plan Of Treatment Medication Medication Name Sig Start Date Stop Date Notes Metoprolol Succinate ER 25 MG 1 tablet Orally Once a day Treatment Notes Assessment Notes Atypical chest pain Patient to see cardi ology at [facility] in 2 weeks Next Appt Details Follow Up: prn, Reason: Provider Name:Neto Rosado ry, 06/21/2025 10:00:00 AM, [address] [facility] 36 [facility], [address], [place], [id number], Progress Notes * Trudy ZABALAOB: 8 (59 yo F)Acc No.[id number]:12/05/2024 Progress Notes Patient: Mica BERNAL Provider: Asiya Samuel M.D. :1965 A ge:59 Y S ex:Female Date:12/05/2024 Address:[place], [place] Pcp:Jael Stacy Subjective: * Chief Complaints: * 1 . [facility] F/U. * HPI: C ardiology: 59 year old female presents with c/o Chest Pain P t here to follow up on 12/03 [facility] ER visit. Pt went to ER for [...] * Images: Billing Information: * Visit Code: 96868 Office Visit, Est Pt., Level 3. * Procedure Codes: * Electronic signature of Lulú Samuel MD on 12/29/2024 at 12:21 AM EDT Sign off status: Pending * Provider: Asiya Samuel M.D. Date: 0 12/05/2024 Generated for Leana mccullough/Rosi/eTransmitting on: 1 12:21 AM EDT History and Physical Notes * HPI (History of Present Illness) Category Sub-Category Detail Notes Category Not es Cardiology Chest Pain Pt here to eliazar w up on 12/03 [facility] ER visit. Pt went to ER for [...]
--- OUTSIDE RECORDS SUMMARY | 2024-12-12 06:15 | XMS_ITS ---
Author Organization [facility] Address [address]10 [facility] 36 [facility] [address] [place] [phone] Care Team Providers Care Media Planner Name Role Phone Jael Stacy Primary Care Provider [phone] Neto Samuel Unavailable [phone] REASON FOR VISIT allergy shots Medications Medication SIG (Take, Route, Frequency, Duration) Notes Start Date End Date Status Acetaminophen 500 MG 2 Capsules Orally e very 6 hrs Active Lidocaine 5 % 1 patch remove after 12 hours Externally Once a day Active Nicotine Polacrilex 2 mg CHEW 1 PIECE OF GUM EVERY 2 HOURS NEEDED; Duration: 9 Active buPROPion HCl ER (SR) 150 mg TAKE ONE TA BLET BY MOUTH 2 TIMES A DAY; Duration: 30 Active Metoprolol Succinate ER 25 MG 1 tablet Orally Once a day Active Methocarbamol 750 MG 1 tablet Orally solitario ry 4 hrs Active Xyzal Allergy 24HR 5 MG 1 tab(s) orally once a day (in the evening); Duration: 30 day(s) Active Encounters Encounter Location Date Provider Diagnosis [place] [facility] 36 [facility] [address] [place] [id number] 12/12/2024 Neto Samuel Allergic rhinitis, unspecified seasonality, unspecified trigger J30.9 Assessments Encounter Date Diagnosis (ICD Code) Assessment Notes Treatment Notes Treatment Clinical Notes Section Notes 12/12/2024 Allergic rhinitis, unspecified seasonality, unspecified trigger (ICD-10 - J30.9) Plan Of Treatment Next Appt Details Provider Name:Neto liao, 06/21/2025 10:00:00 AM, [address] [facility], [address], [place], [phone], Medications Administered Medication Instructions Date of Administration Dosage Notes allergy 12/12/2024 0.15 mL Cat Mix: RT Ar m allergy 12/12/2024 0.15 mL Dog Mix: LY Ar m Progress Notes * Trudy ZABALAOB: 8 (59 yo F)Acc No.[id number]:12/12/2024 Patient: Mica BERNAL Provider: Asiya Samuel M.D. :1965 A ge:59 Y S ex:Female Date:12/12/2024 [facility] Pcp:Jael Stacy Subjective: * Chief Complaints: * 1 . Allergy shots. * Medical History: * Medications: T aking Acetaminophen 500 MG Capsule 2 Capsules Orally [...] BY MOUTH 2 TIMES A DAY , Taking Metoprolol Succinate ER 25 MG Tablet Extended Release 24 Hour 1 tablet Orally Once a day , Medication List reviewed and reconciled with the patient Objective: * Vitals: Assessment: * Assessment: 1. A llergic rhinitis, unspecified seasonality, unspecified trigger - J30.9 (Primary) ? Plan: * Treatment: * Therapeutic Injections: allergy : 0.15 mL (Route: Subcutaneous) given by Josy Cervantes on subcutaneus (Allergic rhinitis, unspecified seasonality, unspecified trigger) allergy : 0.15 mL (Route: Subcutaneous) given by Josy Cervantes on subcutaneus (Allergic rhinitis, unspecified seasonality, unspecified trigger) * Procedure Codes: 9 5117 IMMUNOTHERAPY INJECTIONS * Images: Billing Information: * Visit Code: * Procedure Codes: 48147 IMMUNOTHERAPY INJECTIONS. * Electronic signature of Lulú Samuel MD on 12/29/2024 at 12:22 AM EDT Sign off status: Pending * Provider: Asiya Samuel M.D. Date: 0 12/12/2024 Generated for Leana mccullough/Rosi/Bree on: 1 12:22 AM EDT
--- OUTSIDE RECORDS SUMMARY | 2024-12-19 06:15 | XMS_ITS ---
Author Organization [facility] Address 1210 [facility] 36 [facility] [address] [place] [id number] Care Team Providers Care Reading Aide Name Role Phone Jael Stacy Primary Care Provider Neto Samuel Unavailable [phone] REASON FOR VISIT allergy shots and blood work Medications Medication SIG (Take, Route, Frequency, Duration) Notes Start Date End Date Status Lidocaine 5 % 1 patch remove after 12 hours Externally Once a day Active Acetaminophen 500 MG 2 Capsules Orally e very 6 hrs Active buPROPion HCl ER (SR) 150 mg TAKE ONE TA BLET BY MOUTH 2 TIMES A DAY; Duration: 30 Active Nicotine Polacrilex 2 mg CHEW 1 PIECE OF GUM EVERY 2 HOURS NEEDED; Duration: 9 Active Metoprolol Succinate ER 25 MG 1 tablet Orally Once a day Active Xyzal Allergy 24HR 5 MG 1 tab(s) orally once a day (in the evening); Duration: 30 day(s) Active Methocarbamol 750 MG 1 tablet Orally solitario ry 4 hrs Active Encounters Encounter Location Date Provider Diagnosis [place] 1210 [facility] 36 [facility] [address] [place] [id number] 12/19/2024 Neto Samuel Allergic rhinitis, unspecified seasonality, unspecified trigger J30.9 Assessments Encounter Date Diagnosis (ICD Code) Assessment Notes Treatment Notes Treatment Clinical Notes Section Notes 12/19/2024 Allergic rhinitis, unspecified seasonality, unspecified trigger (ICD-10 - J30.9) Plan Of Treatment Next Appt Details Provider Name:Neto liao, 06/21/2025 10:00:00 AM, [address] [facility], [address], [place], [phone], Medications Administered Medication Instructions Date of Administration Dosage Notes allergy 12/19/2024 0.30 mL Cat mix RA allergy 12/19/2024 0.30 mL Dog mix LA Progress Notes * Trudy ZABALAOB: 8 (59 yo F)Acc No.[id number]:12/19/2024 Patient: Mica BERNAL Provider: Asiya Samuel M.D. :1965 A ge:59 Y S ex:Female Date:12/19/2024 [facility] Pcp:Jael Stacy Subjective: * Chief Complaints: * 1 . Allergy shots and blood work. * Medical History: * Medications: T aking [...] * Treatment: * Therapeutic Injections: allergy : 0.30 mL (Route: Subcutaneous) given by Karla Travis on subcutaneus (Allergic rhinitis, unspecified seasonality, unspecified trigger) allergy : 0.30 mL (Route: Subcutaneous) given by Karla Travis on subcutaneus (Allergic rhinitis, unspecified seasonality, unspecified trigger) * Procedure Codes: 9 5117 IMMUNOTHERAPY INJECTIONS * Images: Billing Information: * Visit Code: * Procedure Codes: 52244 IMMUNOTHERAPY INJECTIONS. * Electronic signature of Lulú Samuel MD on 12/29/2024 at 12:22 AM EDT Sign off status: Pending * Provider: Asiya Samuel M.D. Date: 0 12/19/2024 Generated for Leana mccullough/Rosi/Bree on: 1 12:22 AM EDT
--- OUTSIDE RECORDS SUMMARY | 2024-12-22 06:00 | XMS_ITS ---
Author [facility] Address [address] [place] [phone] Care Team Providers Care Wall Worker Name Role Phone Jael Stacy Primary Care Provider Neto Samuel Unavailable [phone] Allergies Allergen (clinical drug ingredient) Drug/Non Drug [...] W/U Status Risk Notes Problem Pure hypercholesterolemia (220584642) Pure hypercholesterolemia (E78.00) Active confirmed Vital Signs Weight 139 lbs 12/22/2024 Blood pressure systolic 122 mm Hg 12/23/19 25 Blood pressure diastolic 78 mm Hg 025 Heart Rate 62 /min 12/22/2024 Height 61.50 in 12/22/2024 BMI 25.84 kg/m2 12/22/2024 Encounters Encounter Location Date Provider Diagnosis [facility] 1210 [facility] 36 [facility] [address] [place] [phone] 12/22/2024 Neto Samuel Pure hypercholestero lemia E78.00 [...] Name:Neto Rosado ry, 06/21/2025 10:00:00 AM, 1210 [facility] 36 [facility], [address], [place], [phone], Progress Notes * Trudy ZABALAOB: 8 (59 yo F)Acc No.[id number]:12/22/2024 Patient: Mica BENRAL Provider: Asiya Samuel M.D. :1965 A ge:59 Y S ex:Female Date:12/22/2024 Address[place] Pcp:Jael Stacy Subjective: * Chief Complaints: * [...] * Images: Billing Information: * Visit Code: 62338 Office Visit, Est Pt., Level 3. * Procedure Codes: * Electronic signature of Lulú Samuel MD on 12/29/2024 at 12:21 AM EDT Sign off status: Pending * Provider: Asiya Samuel M.D. Date: 0 12/22/2024 Generated for Leana mccullough/Rosi/Georgeransmitting on: 12:21 AM EDT History and Physical Notes * HPI (History of Present Illness) Category Sub-Category Detail Notes Category Not es HPI Here for follow up on: 12/05/2024 lab res ults, see pt docs Examination Category Sub-Category Detail Notes Category Not es General Examination Heart: RSR Lungs: clear to auscultatio n General Appearance: NAD
--- OUTSIDE RECORDS SUMMARY | 2024-12-28 05:30 | XMS_ITS ---
Author Organization [place] Address 1210 [facility] [address] [place] [id number] Care Team Providers Care Mortgage Loan Computation Clerk Name Role Phone Jael Stacy Primary Care Provider Neto Samuel Unavailable [phone] REASON FOR VISIT allergy shots Medications Medication [...] Provider Diagnosis [facility] [address] [place] [phone] 12/28/2024 Neto Samuel Allergic rhinitis, unspecified seasonality, unspecified trigger J30.9 Assessments Encounter Date Diagnosis (ICD Code) Assessment Notes Treatment Notes Treatment Clinical Notes Section Notes 12/28/2024 Allergic rhinitis, unspecified seasonality, unspecified trigger (ICD-10 - J30.9) Plan Of Treatment Next Appt Details Provider Name:Neto liao, 06/21/2025 10:00:00 AM, [address], [address], [place], [phone], Medications Administered Medication Instructions Date of Administration Dosage Notes allergy 12/28/2024 0.35 mL Dog Mix: LT Ar m allergy 12/28/2024 0.35 mL Cat Mix: RT Ar m Progress Notes * Trudy ZABALAOB: 8 (59 yo F)Acc No.[id number]:12/28/2024 Patient: Mica BERNAL Provider: Asiya Samuel M.D. :1965 A ge:59 Y S ex:Female Date:12/28/2024 Address:[address], [facility] Pcp:Jael Stacy Subjective: * Chief Complaints: * [...] Information: * Visit Code: * Procedure Codes: 14799 IMMUNOTHERAPY, ONE INJECTION. * Electronic signature of Lulú Samuel MD on 12/29/2024 at 12:22 AM EDT Sign off status: Pending * Provider: Asiya Samuel M.D. Date: Generated for Leana mccullough/Rosi/Bree on: 12:22 AM EDT
--- NOTE | 2024-12-29 00:09 | HMH.EDGENADL ---
Discharge Plan Disposition Patient Disposition: Home, Self-Care Condition: Good Prescriptions Prescriptions: No Action bupropion HCl 150 mg tablet sustained-release 12 hr 150 mg PO ONCE nicotine (polacrilex) 2 mg gum 2 mg PO Q2H PRN Patient Comments: chew 1 piece BY MOUTH EVERY 2 HOURS NEEDED montelukast 10 mg tablet 10 mg PO DAILY Patient Comments: TAKE 1 TABLET BY MOUTH every night levocetirizine 5 mg tablet 5 mg PO BID PRN Patient Comments: TAKE 1 TABLET BY MOUTH 2 TIMES A DAY NEEDED metoprolol succinate [Toprol XL] 25 mg tablet extended release 24 hr 25 mg PO DAILY Qty: 30 2RF fluticasone propionate 50 mcg/actuation spray,suspension 2 spray intranasal ONCE Patient Comments: INSTILL 2 SPRAYS INTO EACH NOSTRIL ONCE A DAY acetaminophen 500 mg capsule 1,000 mg PO Q6H 7 Days Qty: 56 0RF lidocaine 5 % adhesive patch,medicated 1 patch topical DAILY Qty: 30 0RF Rx Instructions: leave on most painful area for up to 12 hrs Referrals Follow up/Referrals: Neto Samuel MD [Primary Care Provider, Medical] - See instructions Activity Restrictions/Add. Instructions Additional Instructions/Restrictions: Please follow-up in the [facility] at 7:00 the morning for further management. Clinical Impressions Clinical Impression: Radial artery aneurysm, right Print Language Print Language: Chinese Discharge ED Provider: Crow Us General Adult HPI General Chief complaint: Extremity Injury, Upper Stated complaint: pain heart cath insertion site Time Seen by Provider: 12/29/24 00:09 History of Present Illness HPI narrative: 59-year-old female presents for right wrist pain. She had a Procedure done about a month ago and has been doing well since that time. Over the last 2 to 3 days she has noticed pain in the right volar wrist over the area where she had her cath site. She denies any discharge, redness, fever or signs of infection. Related Data Home Medications ?Medication ?Instructions ?Recorded ?Confirmed bupropion HCl 150 mg tablet,12 hr 150 mg PO ONCE 12/05/24 12/19/24 sustained-release levocetirizine 5 mg tablet 5 mg PO BID PRN 12/05/24 12/19/24 montelukast 10 mg tablet 10 mg PO DAILY 12/05/24 12/19/24 nicotine (polacrilex) 2 mg gum 2 mg PO Q2H PRN 12/05/24 12/19/24 fluticasone propionate 50 2 spray intranasal ONCE 12/19/24 12/19/24 mcg/actuation nasal spray,suspension Previous Rx's ?Medication ?Instructions ?Recorded acetaminophen 500 mg capsule 1,000 mg (2 x 500 mg) PO Q6H 7 12/03/24 days #56 caps lidocaine 5 % topical patch 1 patch topical DAILY #30 ea 12/03/24 metoprolol succinate 25 mg 25 mg PO DAILY #30 tabs 12/05/24 tablet,extended release 24 hr (Toprol XL) Allergies Allergy/AdvReac Type Severity Reaction Status Date / Time doxycycline Allergy Mild Hives Verified 12/19/24 11:07 acetaminophen (From Percocet) Allergy Hallucinati Verified 12/19/24 11:07 ng cefdinir Allergy Hives Verified 12/19/24 11:07 codeine Allergy Hallucinati Verified 12/19/24 11:07 ng hydrocodone (From Lortab) Allergy Abdominal Verified 12/19/24 11:07 Pain levofloxacin Allergy Hives Verified 12/19/24 11:07 meloxicam Allergy Nausea Verified 12/19/24 11:07 naproxen Allergy Other Verified 12/19/24 11:07 Penicillins Allergy Hives Verified 12/19/24 11:07 propoxyphene (From Allergy Hives Verified 12/19/24 11:07 Darvocet-N) Sulfa (Sulfonamide Allergy Nausea Verified 12/19/24 11:07 Antibiotics) tramadol Allergy Hives Verified 12/19/24 11:07 PFSH PFSH Disclaimer: The information contained in this section may have been updated after the patient was seen, as this information can be updated by other users. Medical History Urinary tract infection Anxiety Allergies History of anemia Mass of sinus Papilloma of nasopharynx Sore throat Migraine Surgical History H/O breast augmentation History of sinus surgery History of tubal ligation History of hysterectomy History of section History of cholecystectomy Family History Mother Colon cancer Family history of myocardial infarction Family history of diabetes mellitus type II Social History Smoking Status: Current every day smoker alcohol intake: never current occupational status: unemployed Travel in the last 8 weeks?: None do you feel safe at home: Yes victim of physical abuse: No victim of emotional abuse: No victim of sexual abuse: No would you like helpful sources: No Have you lived/traveled outside US in past 30 days?: No Contact w/someone who lives/traveled outside US past 30 days?: No Exposure to someone with infectious disease in past 14 days?: No Do you have a fever (greater than 100.4 F or 38 C)?: No Have you tested positive for COVID-19?: No Exposed to someone with COVID-19 in past 14 days?: No Do you have a sore throat?: No Do you have a cough?: No Do you have any weakness?: No Do you have any diarrhea?: No Are you experiencing any unusual bleeding?: No Do you have any muscle aches/pain?: No Do you have any abdominal pain?: No Are you experiencing loss of taste or smell?: No Other Medical History Have you received the Flu Vaccine for this season: No Have you received the Pneumonia Vaccine: No ROS Obtained: Yes All systems reviewed & no additional complaints except as documented Physical Exam General General appearance: alert and in no apparent distress Head Head exam: atraumatic and normocephalic Eye Eye exam: Present normal appearance, PERRL and EOMI ENT ENT exam: Present normal oropharynx and normal external ear exam Neck Neck exam: Present normal inspection and full ROM Chest Chest inspection: Present normal inspection and symmetric chest wall rise; Absent tenderness Respiratory Respiratory exam: Present normal lung sounds bilaterally; Absent respiratory distress Cardiovascular Cardiovascular exam: Present regular rate and normal rhythm Abdominal Exam Abdominal exam: Present soft; Absent distention, tenderness or guarding Extremities Exam Extremities exam: Present normal inspection and other (Normal strength sensation and pulse in the affected right upper extremity); Absent edema or joint swelling Back Exam Back exam: Present normal inspection; Absent tenderness Neurological Exam Neurological exam: Present alert and oriented X3; Absent motor sensory deficit Psychiatric Psychiatric exam: Present normal affect and normal mood Skin Skin exam: Present warm, dry and normal color Lymphatic Lymphatic Findings: no adenopathy Medical Decision Making Medical Records Medical records reviewed: Yes I reviewed the patient's medical records. Screening: Per USPSTF and CDC recommendations, given the prevalence of disease in our region, it is our hospital?s policy to screen for HIV and viral Hepatitis for all patients aged 18 and over and those with ongoing risk factors. Alexander Inquiry Pt receiving controlled substance: No Alexander was queried for this patient: No Vital Signs: 12/29/24 00:17 12/29/24 00:30 12/29/24 01:00 Temperature 98.6 F 98.6 F Temperature Source Oral Oral Pulse Rate 76 64 Pulse Rate [Left] 71 Respiratory Rate 16 16 Blood Pressure 113/59 L 138/72 Blood Pressure [Right Arm] 127/68 Blood Pressure Mean [Right Arm] 87 Blood Pressure Source Automatic Cuff Blood Pressure Source [Right Arm] Automatic Cuff Blood Pressure Position Sitting Blood Pressure Position [Right Arm] Sitting 02 Sat by Pulse Oximetry 97 96 Oxygen Delivery Method Room Air Room Air Lab Data Lab results reviewed: Yes I reviewed the patient's lab results. Medical Decision Narrative: 59-year-old female with history of Procedure last month presents for pain at the cath access site over the last couple of days. History was obtained via interactive discussion with patient. On arrival, patient is [afebrile, hemodynamically stable, satting appropriately, alert, oriented x4, GCS 15], moving all extremities spontaneously. Full physical exam performed and significant for no significant physical exam abnormalities besides mild tenderness. Differential includes but is not limited to thrombosis, aneurysm, dissection, infection, strain. Bedside ultrasound was performed and it shows small aneurysmal dilation of the right radial artery with appropriate distal flow. She has no evidence of vascular insufficiency on exam. I called and spoke with Dr. Bey regarding the patient. They will follow-up in the [facility] in the morning for application of a TR band. She was discharged in stable condition with return precautions. Procedures Risk/Benefits of Procedure(s) Were Explained: Yes Limited Ultrasound Indication:: Limited soft tissue ultrasound Indication: Wrist pain Identified structures: Location: Right radial artery Findings: Aneurysmal dilation of the right radial artery. On color with Doppler there is an area in the aneurysmal dilation without flow. Patient has appropriate flow distal to the dilation. Impression: Right radial artery aneurysm Images were saved to permanent archive The study was technically adequate Soft Tissue CPT Codes: CPT Upper extremity: 11037-21 This study was performed by me, Dr. Us, and I personally interpreted all images/videos. Critical Care Critical Care Time Critical Care Time: No
[2024-12-29 00:17] VITALS: BP 127/68; PULSE 71; RESP 16; TEMP 37; O2SAT 97; BMI 26.7
--- OUTSIDE RECORDS SUMMARY | 2024-12-29 00:21 | XMS_ITS | Patient Health Record ---
[facility] Address [address] [id number] Care Team Providers Care System Support Specialist Name Role Phone Jael Stacy Primary Care Provider Neto Samuel Unavailable [phone] Irene Shabazz Unavailable [phone] Allergies Allergen (clinical drug ingredient) Drug/Non Drug [...] tablet Orally solitario ry 4 hrs Active Lidocaine 5 % 1 patch remove after 12 hours Externally Once a day Active Acetaminophen 500 MG 2 Capsules Orally e very 6 hrs Active Aspirin 81 81 MG 1 tablet Orally Once a day Active Metoprolol Succinate ER 25 MG 1 tablet Orally Once a day Active buPROPion HCl ER (SR) 150 mg TAKE ONE TA BLET BY MOUTH 2 TIMES A DAY; Duration: 30 Active Immunizations Vaccine Route Administration Date Status Comme nts Tetanus Tdap-Adacel (over 7yrs) IM Intramuscular 12/31/2020 Administered Problems Problem Type SNOMED Code ICD Code Onset Dates Problem Status W/U Status Risk Notes Problem Sinusitis (37622325) Sinusitis (J32.9) Active c onfirmed Problem Anxiety (92393545) Anxiety (F41.9) Active confi rmed Problem Environmental allerg y (809161524) Environmental allergies (Z91.048) Active confirmed Problem Major depression, single episode (80594350) Major depressive disorder, single episode, unspecified (F32.9) Active confirmed Problem Anxiety disorder (876455183) Anxiety disorder, unspecified (F41.9) Active confirmed Problem Chronic maxillary sinusitis (90705803) Chronic maxillary sinusitis (J32.0) Active confirmed Problem Reactive depression (situational) (70929001) Situational depression (F43.21) Active confirmed Problem Panic disorder (545903496) Panic attacks (F41.0) Active confirmed Problem Tobacco user (484879003) Cigarette nicotine dependence without complication (F17.210) Active confirmed Problem Allergic rhinitis (26658645) Seasonal allergic rhinitis due to other allergic trigger (J30.89) Active confirmed Problem Pure hypercholesterolemia (359687686) Pure hypercholesterolemia (E78.00) Active confirmed Problem Allergic rhinitis (97663318) Allergic rhinitis, unspecified seasonality, unspecified trigger (J30.9) Active confirmed Vital Signs Heart Rate 62 /min 12/22/2024 Blood pressure diastolic 78 mm Hg 12/22/2024 Height 61.50 in 12/22/2024 Blood pressure systolic 122 mm Hg 12/22/2024 Weight 139 lbs 12/22/2024 BMI 25.84 kg/m2 12/22/2024 Encounters Encounter Location Date Provider Diagnosis [facility] [address] [facility] [address] [facility] [address] [place] [id number] 09/12/2024 Neto [place] Seasonal allergic rh initis due to other allergic trigger J30.89 [facility] [address] [facility] [address] [facility] [address] [place] [id number] 09/21/2024 Irene Crowdy Allergic rhinitis, unspecified seasonality, unspecified trigger J30.9 [facility] [address] [place], [place] [id number] 09/25/2024 Neto [place] Seasonal allergic rh initis due to other allergic trigger J30.89 [facility] [address] [place], [place] [id number] 10/03/2024 Neto [place] Allergic rhinitis, unspecified seasonality, unspecified trigger J30.9 [facility] [address] [place], [place] [id number] 10/10/2024 Neto [place] Seasonal allergic rh initis due to other allergic trigger J30.89 [facility] [address] [place], [place] [id number] 10/18/2024 Neto [place] Allergic rhinitis, unspecified seasonality, unspecified trigger J30.9 [facility] [address] [place], [place] [id number] 10/26/2024 Neto [place] Seasonal allergic rh initis due to other allergic trigger J30.89 [facility] [address] [place], [place] [id number] 11/03/2024 Neto [place] Seasonal allergic rh initis due to other allergic trigger J30.89 [facility] [address] [place] [id number] 11/11/2024 Neto [place] Allergic rhinitis, unspecified seasonality, unspecified trigger J30.9 [facility] [address] [place], [place] [id number] 11/24/2024 Neto [place] Seasonal allergic rh initis due to other allergic trigger J30.89 [facility] [address] [place], [place] [id number] 12/01/2024 Neto [place] Chest pain, unspecif ied type R07.9 [facility] [address] [place], [place] [id number] 12/02/2024 Neto [place] Allergic rhinitis, unspecified seasonality, unspecified trigger J30.9 [facility] [address] [place], [place] [id number] 12/05/2024 Neto [place] Atypical chest pain R07.89 [facility] [address] [place], [place] [id number] 12/12/2024 Neto [place] Allergic rhinitis, unspecified seasonality, unspecified trigger J30.9 [facility] [address] [place], [place] [id number] 12/19/2024 Neto [place] Allergic rhinitis, unspecified seasonality, unspecified trigger J30.9 [facility] [address] [place] [id number] 12/22/2024 Neto [place] Pure hypercholestero lemia E78.00 [facility] [address] [place] [id number] 12/28/2024 Neto [place] Allergic rhinitis, unspecified seasonality, unspecified trigger J30.9 [facility] [address] [place], [place] [id number] 06/13/2024 Jael Stacy [facility] [address] [place], [place] [id number] 10/03/2024 Jael Stacy Assessments Encounter Date Diagnosis (ICD Code) Assessment Notes Treatment Notes Treatment Clinical Notes Section Notes 09/12/2024 Seasonal allergic rhinitis due to other allergic trigger (ICD-10 - J30.89) 09/21/2024 Allergic rhinitis, unspecified seasonality, unspecified trigger (ICD-10 - J30.9) 09/25/2024 Seasonal allergic rhinitis due to other allergic trigger (ICD-10 - J30.89) 10/03/2024 Allergic rhinitis, unspecified seasonality, unspecified trigger (ICD-10 - J30.9) 10/10/2024 Seasonal allergic rhinitis due to other allergic trigger (ICD-10 - J30.89) 10/18/2024 Allergic rhinitis, unspecified seasonality, unspecified trigger (ICD-10 - J30.9) 10/26/2024 Seasonal allergic rhinitis due to other allergic trigger (ICD-10 - J30.89) 11/03/2024 Seasonal allergic rhinitis due to other allergic trigger (ICD-10 - J30.89) 11/11/2024 Allergic rhinitis, unspecified seasonality, unspecified trigger (ICD-10 - J30.9) 11/24/2024 Seasonal allergic rhinitis due to other allergic trigger (ICD-10 - J30.89) 12/01/2024 Chest pain, unspecif ied type (ICD-10 - R07.9) Patient taken to ER for further evaluation 12/02/2024 Allergic rhinitis, unspecified seasonality, unspecified trigger (ICD-10 - J30.9) 12/05/2024 Atypical chest pain (ICD-10 - R07.89) Patient to see cardiology at [facility] in 2 weeks 12/12/2024 Allergic rhinitis, unspecified seasonality, unspecified trigger (ICD-10 - J30.9) 12/19/2024 Allergic rhinitis, unspecified seasonality, unspecified trigger (ICD-10 - J30.9) 12/22/2024 Pure hypercholesterolemia (ICD-10 - E78.00) diet & exercise reviewed with patient 12/28/2024 Allergic rhinitis, unspecified seasonality, unspecified trigger (ICD-10 - J30.9) Plan Of Treatment Next Appt Details Provider Name:Neto Rosado ry, 06/21/2025 10:00:00 AM, [address] [facility], [place], [place], [id number], Insurance Providers Payer Name Payer Address Payer Phone Subscriber Number Group Number Insured Name Patient Relationship to Insured Coverage Start Date Coverage End Date [employer] [facility] [address] [place], [place] [phone] [id number] Mica Zabala Self - patient is the [...] 0.10 mL Dog Mix: LT Ar m allergy 12/12/2024 0.15 mL Cat Mix: RT Ar m allergy 12/12/2024 0.15 mL Dog Mix: LY Ar m allergy 12/19/2024 0.30 mL Cat mix RA allergy 12/19/2024 0.30 mL Dog mix LA allergy 12/28/2024 0.35 mL Dog Mix: LT Ar m allergy 12/28/2024 0.35 mL Cat Mix: RT Ar m B-12 07/08/2011 1 mL Medical (General) History Medical History History ICD Code Anxiety Cigarette Nicotine Dependence Panic Attacks Seasonal Allergic Rhinitis Chronic Maxillary Sinusitis Major Depressive Disorder Surgical History Surgery Date(Month/Year) C section 1986 ganglion cyst 1986.1988 scar revision 1994 tubal ligation 1994 cholecystectomy 2003 sinus x 2 2005 Hysterectomy 2015 sinus surgery 01/2022 Heart Cath 10/31/2024 Hospitalization History Reason Date(Month/Year)
--- OUTSIDE RECORDS SUMMARY | 2024-12-29 00:21 | XMS_ITS | Clinical Summary ---
Author Organization [facility] Address [address] [place] [address] Care Team Providers Care Cutting Supervisor Name Role Phone Orestes Stacy MD Primary Care Provider [phone] Kimmie Burks MD Unavailable Allergies Active Allergy [...] (Atrovent) 0.03 % nasal spray 5 Active fluticasone (Flonase) 50 MCG/ACT nasal spray Administer 2 sprays into each nostril daily. Shake gently. Before first use, prime pump. After use, clean tip and replace cap. 16 g 11 5 12/14/19 26 Active azelastine (Astelin) 0.1 % nasal spray Administer 1 spray into each nostril 2 times a day. 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 Left epiphora 03/26/2022 Encounters Date Type Department Care Team Description 12/13/2024 Orders Only [facility] Otolaryngology [address] [place] [address] Omega Limon MD 12/12/2024 Telephone [facility] Otolaryngology [address] [place] [address] Omega Limon MD from Last 3 Months Family History Medical [...] Description 02/28/2025 1:15 PM EST Office Visit [facility] [address] [place] [address] Omega Limon MD [address] [place] [address] Health Maintenance Due Date Last [...] 2017 [facility]-Zoster Vaccines (1 of 2) 2017 [id number] Vaccine (1 - season) 2024 [facility]-Influenza Vaccine [...] this topic Medical Devices Implanted Type Area Skidder Operator Device Identifier Shelf Expiration Date Model / [...] Screen Nonreactive Nonreactive 02/09/2022 10:51 PM EST [facility] Blood Venous blood specimen / Unknown Venipuncture / Unknown 02/09/2022 9:07 PM EST 02/09/2022 9:53 PM EST us Akbar Blanchard MD LAB BLOOD ORDERABLES Final Resul t Performing Organization Address City/[facility] Co de Phone Number [facility] [address] [place] [address] * Hepatitis C Antibody - ED (02/09/2022 9:07 PM EST) Pathologist [facility] Hepatitis C Antibody Negative Negative 02/09/2022 10:53 PM EST [facility] Blood Venous blood specimen / Unknown Venipuncture / Unknown 02/09/2022 9:07 PM EST 02/09/2022 9:53 PM EST us Akbar Blanchard MD LAB BLOOD ORDERABLES Final Resul t Performing Organization Address City/[facility] de Phone Number [facility]ARE [facility] [address] [place] [address] from Last 3 Months or Most Recently Relevant to Health Maintenance Insurance AETNA [facility] MEDICAID Care Teams Cutting Supervisor Relationship Specialty Start Date End Date Orestes Stacy MD [address] [place] [address] PCP - General 01/19/22 Kimmie Burks MD [address] [place] [address] Resident Neurology 06/29/22
--- OUTSIDE RECORDS SUMMARY | 2024-12-29 00:22 | XMS_ITS | Encounter Summary ---
Author Organization [facility] Address [address] [place] [address] Care Team Providers Care Security Screener Name Role Phone Orestes Stacy MD Primary Care Provider [phone] Kimmie Burks MD Unavailable Encounter Details Date Type Department Care Team (Late st Contact Info) Description 12/12/2024 Telephone [facility] [address] [place] [address] Omega Limon MD [address] [place] [address] Social History Tobacco Use Types Packs/Day Years Used Date Smoking Tobacco: Some Days Cigarettes Last attempted to quit: 01/23/2022 Passive Smoke Exposure: Current Smokeless Tobacco: Never Alcohol Use Standard Drinks/Week Comments Never 0 (1 standard drink = 0.6 oz pur e alcohol) Comments Unknown Sex and Gender Information Value Date Recorded Sex Assigned at Female 01/29/2022 2:24 PM EDT Legal Sex Female 6:57 PM EDT Gender Identity Female 01/29/2022 2:24 PM EDT Sexual Orientation Straight 01/29/2022 2: 24 PM EDT documented as of this encounter Miscellaneous Notes * Telephone Encounter - Maria Elena Greer Kaiden - 12/13/2024 10:07 AM EDT After consulting with Dr. Limon, called and informed the patient that she should start Flonase (2 sprays once daily) and Astepro (1 spray twice daily). I also stated that both medications can be purchased [id number]. * Telephone Encounter - Sabrina Escobar - 12/12/2024 11:59 AM EDT Emailed documented in this encounter Plan of Treatment Upcoming Encounters Date Type Department Care Team (Late st Contact Info) Description 02/28/2025 1:15 PM EST Office Visit [facility] [address] [place] [address] Omega Limon MD [address] [facility] [address] [place] [address] documented as of this encounter Visit Diagnoses Not on filedocumented in this encounter Additional Health Concerns Assessment Noted Time A fall risk assessment has been complete d for the patient 06/29/2022 1:51 PM EDT A Body Mass Index follow-up plan has been documented for the patient 09/19/2024 9:39 AM EDT documented as of this encounter Care Teams Security Screener Relationship Specialty Start Date End Date Orestes Stacy MD [address] [place] [address] PCP - General 01/19/22 Kimmie Burks MD [address] [place] [address] Resident Neurology 06/29/22 documented as of this encounter
--- OUTSIDE RECORDS SUMMARY | 2024-12-29 00:22 | XMS_ITS | Encounter Summary ---
Author Organization [facility] Address [address] [place] [address] Care Team Providers Care Computational Scientist Name Role Phone Orestes Stacy MD Primary Care Provider [phone] Kimmie Burks MD Unavailable Encounter Details Date Type Department Care Team (Late st Contact Info) Description 12/13/2024 Orders Only [facility] [address], [address] [place] [address] Omega Limon MD [address] [place] [address] Social History Tobacco Use Types [...] Description 02/28/2025 1:15 PM EST Office Visit [facility] [address], [address] [place] [address] Omega Limon MD [address] [facility] [address] [place] [address] documented as of this encounter Visit Diagnoses Not on filedocumented in this encounter Additional Health Concerns Assessment Noted Time A fall risk assessment has been complete d for the patient 06/29/2022 1:51 PM EDT A Body Mass Index follow-up plan has been documented for the patient 09/19/2024 9:39 AM EDT documented as of this encounter Care Teams Computational Scientist Relationship Specialty Start Date End Date Orestes Stacy MD [address] [facility] [address] [place] [address] PCP - General 01/19/22 Kimmie Burks MD [address] [place] [address] Resident Neurology 06/29/22 documented as of this encounter
--- OUTSIDE RECORDS SUMMARY | 2024-12-29 00:22 | XMS_ITS | Encounter Summary ---
Author Organization [facility] Address [address] [place] [address] Care Team Providers Care Rn Infusion Name Role Phone Orestes Stacy MD Primary Care Provider [phone] Kimmie Burks MD Unavailable Encounter Details Date Type Department Care Team (Late Contact Info) Description 12/23/2021 Orders Only External Location [address] [place] [address] Lester Thorne MD [address] [facility] [address] [place] [address] Social History Tobacco Use Types Packs/Day Years [...] Description 02/28/2025 1:15 PM EST Office Visit [facility] [address], [address] [place] [address] Omega Limon MD [address] [facility] [address] [place] [address] documented as of this encounter Procedures Procedure [...] on filedocumented in this encounter Care Teams Rn Infusion Relationship Specialty Start Date End Date Orestes Stacy MD [address] [place] [address] PCP - General 01/19/22 Kimmie Burks MD [address] [place] [address] Resident Neurology 06/29/22 documented as of this encounter
[2024-12-29 00:30] VITALS: BP 113/59; PULSE 76; O2SAT 96
[2024-12-29 01:00] VITALS: BP 138/72; PULSE 64; RESP 16; TEMP 37; O2SAT 97
--- NOTE | 2024-12-29 08:28 | CA_ITS ---
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 Cardiac catheterization 12/05/2024 FINDINGS: Spectral and Doppler waveform evaluations of the right wrist was performed. Spectral analysis was performed. 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 Reviewed, Interpreted and Dictated by Jaden Rainey MD Transcribed by Chula Darby Authenticated and [facility]
== END 2024-12-29 01:02 | disposition home or self-care (01) ==
LOC: ER 00:19
PROVIDERS: Emergency Provider Emergency Medicine; PCP Family Medicine
DX: I72.1 Aneurysm of artery of upper extremity (principal); M25.531 Pain in right wrist; F17.210 Nicotine dependence, cigarettes, uncomplicated
CPT/HCPCS: 93931; 99283; 99284

== ENCOUNTER 2024-12-29 09:08 | Outpatient (CLI) | payer OTHER, SELFPAY ==
--- OUTSIDE RECORDS SUMMARY | 2024-12-05 06:45 | XMS_ITS ---
[facility] Address [address] [place] [id number] Care Team Providers Care Chinese Instructor Name Role Phone Jael Stacy Primary Care Provider Neto Samuel Unavailable [phone] Allergies Allergen (clinical drug ingredient) Drug/Non Drug [...] Unknown Drug Allergy Active REASON FOR VISIT [facility] F/U Medications Medication SIG (Take, Route, Frequency, Duration) Notes Start Date End Date Status Metoprolol Succinate ER 25 MG 1 tablet Orally Once a day Active Acetaminophen 500 MG 2 Capsules Orally e very 6 hrs Active Lidocaine 5 % 1 patch remove after 12 hours Externally Once a day Active buPROPion HCl ER (SR) 150 mg TAKE ONE TA BLET BY MOUTH 2 TIMES A DAY; Duration: 30 Active Xyzal Allergy 24HR 5 MG 1 tab(s) orally once a day (in the evening); Duration: 30 day(s) Active Methocarbamol 750 MG 1 tablet Orally solitario ry 4 hrs Active Nicotine Polacrilex 2 mg CHEW 1 PIECE OF GUM EVERY 2 HOURS NEEDED; Duration: 9 Active Vital Signs Blood pressure systolic 140 mm Hg 12/06/19 25 Blood pressure diastolic 80 mm Hg 025 Heart Rate 69 /min 12/05/2024 Height 61.50 in 12/05/2024 Weight 139.6 lbs 12/05/2024 BMI 25.95 kg/m2 12/05/2024 Encounters Encounter Location Date Provider Diagnosis [facility] [address] [facility] [address] [facility] [address] [place] [id number] 12/05/2024 Neto Samuel Atypical chest pain R07.89 Assessments Encounter Date Diagnosis (ICD Code) Assessment Notes Treatment Notes Treatment Clinical Notes Section Notes 12/05/2024 Atypical chest pain (ICD-10 - R07.89) Patient to see cardiology at [facility] in 2 weeks Plan Of Treatment Medication Medication Name Sig Start Date Stop Date Notes Metoprolol Succinate ER 25 MG 1 tablet Orally Once a day Treatment Notes Assessment Notes Atypical chest pain Patient to see cardi ology at [facility] in 2 weeks Next Appt Details Follow Up: prn, Reason: Provider Name:Neto Rosado ry, 06/21/2025 10:00:00 AM, [address] [facility] 36 [facility], [address], [place], [id number], Progress Notes * Trudy ZABALAOB: 8 (59 yo F)Acc No.[id number]:12/05/2024 Progress Notes Patient: Mica BERNAL Provider: Asiya Samuel M.D. :1965 A ge:59 Y S ex:Female Date:12/05/2024 Address:[place], [id number] Pcp:Jael Stacy Subjective: * Chief Complaints: * 1 . [facility] F/U. * HPI: C ardiology: 59 year old female presents with c/o Chest Pain P t here to follow up on 12/03 [facility] ER visit. Pt went to ER for chest pain and ended up having heart cath, normal results. Pt states she has still been having some chest pain. Pt states she was prescribed Methocarbamol 750mgand she started having chest pain about an hour after taking medication. Patient saw cardiology this morning and they started Metoprolol. Pt states he next appointment with Cardiology is 12/19 @ 10:30. * ROS: D ERMATOLOGY: no R shante. [...] x 2 2004, Hysterectomy 2014, sinus surgery 01/2022, Heart Cath 10/31/2024. * Hospitalization/Major Diagno stic Procedure: D enies [...] Sexually active: yes. * Medications: T aking Metoprolol Succinate ER 25 MG Tablet Extended Release 24 Hour 1 tablet Orally Once a day , Taking Acetaminophen 500 MG Capsule 2 Capsules Orally every 6 hrs , Taking Lidocaine 5 % Patch 1 patch remove after 12 hours Externally Once a day , Taking Methocarbamol 750 MG Tablet 1 tablet Orally every 4 hrs , Taking Xyzal Allergy 24HR 5 MG Tablet 1 tab(s) orally once a day (in the evening) , Taking Nicotine Polacrilex 2 mg Gum CHEW 1 PIECE OF GUM EVERY 2 HOURS NEEDED , Taking buPROPion HCl ER (SR) 150 mg Tablet Extended Release 12 Hour TAKE ONE TABLET BY MOUTH 2 TIMES A DAY , Discontinued Montelukast Sodium 10 MG Tablet 1 tablet Orally Once a day , Medication List reviewed and reconciled with the patient * Allergies: C odeine, Penicillins, Percocet, HYDROcodone-Acetaminophen, Sulfa Antibiotics, Meloxicam, Doxycycline, Lortab, Naproxen, Levaquin, Cefdinir, Amoxicillin, traMADol. Objective: * Vitals: W t: 139.6, Temp: 97.6, BP: 140/80, HR: 69, Nurse: JOSE, Ht: 61.50, BMI:25.95. * Examination: G eneral Examination: General Appearance: N AD. H eart: R SR. L ungs:?clear to auscultation. E xtremities: n o leg edema. Assessment: * Assessment: 1. A typical chest pain - R07.89 (Primary) Plan: * Treatment: * Follow Up: p rn * Images: Billing Information: * Visit Code: 52456 Office Visit, Est Pt., Level 3. * Procedure Codes: * Electronic signature of Lulú Samuel MD on 12/29/2024 at 09:11 AM EDT Sign off status: Pending * Provider: Asiya Samuel M.D. Date: 0 12/05/2024 Generated for Leana mccullough/Rosi/Georgeransmitting on: 1 09:11 AM EDT History and Physical Notes * HPI (History of Present Illness) Category Sub-Category Detail Notes Category Not es Cardiology Chest Pain Pt here to eliazar w charmaine on 12/03 [facility] ER visit. Pt went to ER for chest pain and ended up having heart cath, normal results. Pt states she has still been having some chest pain. Pt states she was prescribed Methocarbamol 750mgand she started having chest pain about an hour after taking medication. Patient saw cardiology this morning and they started Metoprolol. Pt states he next appointment with Cardiology is 12/19 @ 10:30 Examination Category Sub-Category Detail Notes Category Not es General Examination Heart: RSR Lungs: clear to auscultatio n Extremities: no leg edema General Appearance: NAD
--- OUTSIDE RECORDS SUMMARY | 2024-12-12 06:15 | XMS_ITS ---
Author Organization [facility] Address 1210 [facility] 36 [facility] [address] [place] [phone] Care Team Providers Care Zmt Operator Name Role Phone Jael Stacy Primary Care Provider Neto Samuel Unavailable [phone] REASON FOR VISIT allergy shots Medications Medication [...] Location Date Provider Diagnosis [place] 1210 [facility] 36 [facility] [address] [place] [id number] 12/12/2024 Neto Samuel Allergic rhinitis, unspecified seasonality, unspecified trigger J30.9 Assessments Encounter Date Diagnosis (ICD Code) Assessment Notes Treatment Notes Treatment Clinical Notes Section Notes 12/12/2024 Allergic rhinitis, unspecified seasonality, unspecified trigger (ICD-10 - J30.9) Plan Of Treatment Next Appt Details Provider Name:Neto liao, 06/21/2025 10:00:00 AM, [address] [facility], [address], [place], [phone], Medications Administered Medication Instructions Date of Administration Dosage Notes allergy 12/12/2024 0.15 mL Cat Mix: RT Ar m allergy 12/12/2024 0.15 mL Dog Mix: LY Ar m Progress Notes * Trudy ZABALAOB: 8 (59 yo F)Acc No.[id number]:12/12/2024 Patient: Mica BERNAL Provider: Asiya Samuel M.D. :1965 A ge:59 Y S ex:Female Date:12/12/2024 [facility] Pcp:Jael Stacy Subjective: * Chief Complaints: * [...] Information: * Visit Code: * Procedure Codes: 76439 IMMUNOTHERAPY INJECTIONS. * Electronic signature of Lulú Samuel MD on 12/29/2024 at 09:12 AM EDT Sign off status: Pending * Provider: Asiya Samuel M.D. Date: 0 12/12/2024 Generated for Leana mccullough/Rosi/Bree on: 1 09:12 AM EDT
--- OUTSIDE RECORDS SUMMARY | 2024-12-19 06:15 | XMS_ITS ---
Author Organization [facility] Address 1210 [facility] [address] [facility] [address] [place] [phone] Care Team Providers Care Commission Clerk Name Role Phone Jael Stacy Primary Care Provider Neto Samuel Unavailable [phone] REASON FOR VISIT allergy shots and blood [...] Location Date Provider Diagnosis [place] 1210 [facility] [address] [facility] [address] [place] [id number] 12/19/2024 Neto Samuel Allergic rhinitis, unspecified seasonality, unspecified trigger J30.9 Assessments Encounter Date Diagnosis (ICD Code) Assessment Notes Treatment Notes Treatment Clinical Notes Section Notes 12/19/2024 Allergic rhinitis, unspecified seasonality, unspecified trigger (ICD-10 - J30.9) Plan Of Treatment Next Appt Details Provider Name:Neto liao, 06/21/2025 10:00:00 AM, [address] [facility], [address], [place], [phone], Medications Administered Medication Instructions Date of Administration Dosage Notes allergy 12/19/2024 0.30 mL Cat mix RA allergy 12/19/2024 0.30 mL Dog mix LA Progress Notes * Trudy ZABALAOB: 8 (59 yo F)Acc No.[id number]:12/19/2024 Patient: Mica BERNAL Provider: Asiya Samuel M.D. :1965 A ge:59 Y S ex:Female Date:12/19/2024 [facility] Pcp:Jael Stacy Subjective: * Chief Complaints: * [...] Information: * Visit Code: * Procedure Codes: 30723 IMMUNOTHERAPY INJECTIONS. * Electronic signature of Lulú Samuel MD on 12/29/2024 at 09:11 AM EDT Sign off status: Pending * Provider: Asiya Samuel M.D. Date: 0 12/19/2024 Generated for Leana mccullough/Rosi/Bree on: 1 09:11 AM EDT
--- OUTSIDE RECORDS SUMMARY | 2024-12-22 06:00 | XMS_ITS ---
[facility] Address [address] [place] [id number] Care Team Providers Care Frit Burner Name Role Phone Jael Stacy Primary Care Provider [phone] Neto Samuel Unavailable [phone] Allergies Allergen (clinical drug ingredient) Drug/Non Drug [...] Unknown Drug Allergy Active REASON FOR VISIT f/u on lab results Medications Medication SIG (Take, Route, Frequency, Duration) Notes Start Date End Date Status Xyzal Allergy 24HR 5 MG 1 tab(s) orally once a day (in the evening); Duration: 30 day(s) Active Nicotine Polacrilex 2 mg CHEW 1 PIECE OF GUM EVERY 2 HOURS NEEDED; Duration: 9 Active Methocarbamol 750 MG 1 tablet Orally solitario ry 4 hrs Active Metoprolol Succinate ER 25 MG 1 tablet Orally Once a day Active buPROPion HCl ER (SR) 150 mg TAKE ONE TA BLET BY MOUTH 2 TIMES A DAY; Duration: 30 Active Lidocaine 5 % 1 patch remove after 12 hours Externally Once a day Active Aspirin 81 81 MG 1 tablet Orally Once a day Active Acetaminophen 500 MG 2 Capsules Orally e very 6 hrs Active Problems Problem Type SNOMED Code ICD Code Onset Dates Problem Status W/U Status Risk Notes Problem Pure hypercholesterolemia (608036045) Pure hypercholesterolemia (E78.00) Active confirmed Vital Signs Blood pressure systolic 122 mm Hg 12/23/19 25 Blood pressure diastolic 78 mm Hg 025 Heart Rate 62 /min 12/22/2024 Height 61.50 in 12/22/2024 Weight 139 lbs 12/22/2024 BMI 25.84 kg/m2 12/22/2024 Encounters Encounter Location Date Provider Diagnosis [facility] 1210 [facility] 36 [facility] [address] [place] [id number] 12/22/2024 Neto Samuel Pure hypercholestero lemia E78.00 Assessments Encounter Date Diagnosis (ICD Code) Assessment Notes Treatment Notes Treatment Clinical Notes Section Notes 12/22/2024 Pure hypercholesterolemia (ICD-10 - E78.00) diet & exercise reviewed with patient Plan Of Treatment Treatment Notes Assessment Notes Pure hypercholesterolemia diet & exercis e reviewed with patient Next Appt Details Follow Up: 6 Months fasting, Reason: Provider Name:Neto Rosado ry, 06/21/2025 10:00:00 AM, [address] [facility] 36 [facility], [address], [place], [id number], Progress Notes * Trudy ZABALAOB: 8 (59 yo F)Acc No.[id number]:12/22/2024 Patient: Mica BERNAL Provider: Asiya Samuel M.D. :1965 A ge:59 Y S ex:Female Date:12/22/2024 [address] [place] Pcp:Jael Stacy Subjective: * Chief Complaints: * 1 . F/u on lab results. * HPI: H PI: 59 year old female presents with c/o Here for follow up on:?12/05/2024 lab results, see pt docs. * Medical History: A nxiety, Cigarette Nicotine [...] Sexually active: yes. * Medications: T aking Aspirin 81 81 MG Tablet Delayed Release 1 tablet Orally Once a day , [...] Amoxicillin, traMADol. Objective: * Vitals: W t: 139, Temp: 97.8, BP: 122/78, HR: 62, Nurse: richard, Ht: 61.50, BMI:25.84. * Examination: G eneral Examination: General Appearance: N AD. H eart: R SR. L ungs:?clear to auscultation. Assessment: * Assessment: 1. P ure hypercholesterolemia - E78.00 (Primary) Plan: * Treatment: * Follow Up: 6 Months fasting * Images: Billing Information: * Visit Code: 95355 Office Visit, Est Pt., Level 3. * Procedure Codes: * Electronic signature of Lulú Samuel MD on 12/29/2024 at 09:11 AM EDT Sign off status: Pending * Provider: Asiya Samuel M.D. Date: 0 12/22/2024 Generated for Leana mccullough/Rosi/Georgeransmitting on: 09:11 AM EDT History and Physical Notes * HPI (History of Present Illness) Category Sub-Category Detail Notes Category Not es HPI Here for follow up on: 12/05/2024 lab res ults, see pt docs Examination Category Sub-Category Detail Notes Category Not es General Examination Heart: RSR Lungs: clear to auscultatio n General Appearance: NAD
--- OUTSIDE RECORDS SUMMARY | 2024-12-28 05:30 | XMS_ITS ---
Author Organization [place] Address 1210 [facility] [address] [place] [phone] Care Team Providers Care Process Camera Operator Name Role Phone Jael Stacy Primary Care Provider [phone] Neto Samuel Unavailable [phone] REASON FOR VISIT allergy shots Medications Medication [...] Capsules Orally e very 6 hrs Active Aspirin 81 81 MG 1 tablet Orally Once a day Active Encounters Encounter Location Date Provider Diagnosis [facility] [address] [place] [id number] 12/28/2024 Neto Samuel Allergic rhinitis, unspecified seasonality, unspecified trigger J30.9 Assessments Encounter Date Diagnosis (ICD Code) Assessment Notes Treatment Notes Treatment Clinical Notes Section Notes 12/28/2024 Allergic rhinitis, unspecified seasonality, unspecified trigger (ICD-10 - J30.9) Plan Of Treatment Next Appt Details Provider Name:Neto liao, 06/21/2025 10:00:00 AM, [address], [address], [place], [phone], Medications Administered Medication Instructions Date of Administration Dosage Notes allergy 12/28/2024 0.35 mL Dog Mix: LT Ar m allergy 12/28/2024 0.35 mL Cat Mix: RT Ar m Progress Notes * Trudy ZABALAOB: 8 (59 yo F)Acc No.[id number]:12/28/2024 Patient: Mica BERNAL Provider: Asiya Samuel M.D. :1965 A ge:59 Y S ex:Female Date:12/28/2024 Address:[address], [facility] Pcp:Jael Stacy Subjective: * Chief Complaints: * 1 . Allergy shots. * Medical History: * Medications: T aking Aspirin 81 81 [...] seasonality, unspecified trigger) * Procedure Codes: 9 5115 IMMUNOTHERAPY, ONE INJECTION * Images: Billing Information: * Visit Code: * Procedure Codes: 63426 IMMUNOTHERAPY, ONE INJECTION. * Electronic signature of Lulú Samuel MD on 12/29/2024 at 09:12 AM EDT Sign off status: Pending * Provider: Asiya Samuel M.D. Date: Generated for Leana mccullough/Rosi/Bree on: 09:12 AM EDT
--- NOTE | 2024-12-29 08:28 | CA_ITS ---
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 Cardiac catheterization 12/05/2024 FINDINGS: Spectral and Doppler waveform evaluations of the right wrist was performed. Spectral analysis was performed. 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 Reviewed, Interpreted and Dictated by Jaden Rainey MD Transcribed by Chula Darby Authenticated and [facility]
--- OUTSIDE RECORDS SUMMARY | 2024-12-29 09:11 | XMS_ITS | Clinical Summary ---
Author Organization [facility] Address [address] 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 Left epiphora 03/26/2022 Encounters Date Type Department Care Team Description 12/29/2024 Travel 12/13/2024 Orders Only [facility] Otolaryngology [address], [address] [place] [address] Omega Limon MD 12/12/2024 Telephone [facility] Otolaryngology [address], 3rd [place] [address] Omega Limon MD from Last [...] Care Team (Late st Contact Info) Description 01/01/2025 1:00 PM EDT Office Visit [facility] [address] [place] [address], [address] [place] [address] Janes Francisco MD [address] [facility] [address] [place] [address] 02/28/2025 1:15 PM EST Office Visit [facility] Otolaryngology [address], 3[address] [place] [address] Omega Limon MD [address] [facility] [address] [place] [address] Health Maintenance Due Date Last Done Comments [facility]-Depression Screening 1967 [facility]-Infant/Child/Adol SDOH Screenings 1967 [facility]- SDOH Screenings 1985 [facility]-Adult SDOH Screenings 1985 [facility]-Hepatitis B Vaccines (1 of 3 - 19+ 3-dose series) 1986 [facility]-Pneumococcal Vaccine: 50+ Years (1 of 2 - PCV) 1986 CT Colonography 2012 Colonoscopy 2012 FIT-DNA 2012 FIT 2012 FOBT 2012 Sigmoidoscopy 2012 [facility]-Colorectal Cancer Screening 2012 [facility]-Breast Cancer Screening 2017 [facility]-Zoster Vaccines (1 of 2) 2017 [id number] Vaccine (1 - season) 2024 [facility]-Influenza Vaccine [...] this topic Medical Devices Implanted Type Area Desulphurizer Operator Device Identifier Shelf Expiration Date Model [...] ORDERABLES Final Resul t Performing Organization Address City/[facility] Co de Phone Number [facility] [address] [place] [address] * Hepatitis C Antibody - ED (02/09/2022 9:07 PM EST) Hepatitis C Antibody Negative Negative 02/09/2022 10:53 PM EST [facility] Blood Venous blood specimen / Unknown Venipuncture / Unknown 02/09/2022 9:07 PM EST 02/09/2022 9:53 PM EST us Akbar Blanchard MD LAB BLOOD ORDERABLES Final Resul t Performing Organization Address City/[facility] Co de Phone Number [facility] [address] [place] [address] from Last 3 Months or Most Recently Relevant to Health Maintenance Insurance AETNA [facility] MEDICAID Care Teams Desktop Support Manager Relationship Specialty Start Date End Date Orestes Stacy MD [address] [place] [address] PCP - General 01/19/22 Kimmie Burks MD [address] [place] [address] Resident Neurology 06/29/22
--- OUTSIDE RECORDS SUMMARY | 2024-12-29 09:11 | XMS_ITS | Patient Health Record ---
Author Organization [facility] Address [address] [id number] Care Team Providers Care Animal Science Instructor Name Role Phone Jael Stacy Primary Care Provider Neto Samuel Unavailable [phone] Irene Shabazz Unavailable [phone] Allergies Allergen (clinical drug ingredient) Drug/Non Drug [...] Status W/U Status Risk Notes Problem Sinusitis (60404869) Sinusitis (J32.9) Active c onfirmed Problem Anxiety (62264424) Anxiety (F41.9) Active confi rmed Problem Environmental allerg y (703551745) Environmental allergies (Z91.048) Active confirmed Problem Major depression, single episode (41773689) Major depressive disorder, single episode, unspecified (F32.9) Active confirmed Problem Anxiety disorder (002642172) Anxiety disorder, unspecified (F41.9) Active confirmed Problem Chronic maxillary sinusitis (93205983) Chronic maxillary sinusitis (J32.0) Active confirmed Problem Reactive depression (situational) (40488520) Situational depression (F43.21) Active confirmed Problem Panic disorder (566704030) Panic attacks (F41.0) Active confirmed Problem Tobacco user (211616235) Cigarette nicotine dependence without complication (F17.210) Active confirmed Problem Allergic rhinitis (17850260) Seasonal allergic rhinitis due to other allergic trigger (J30.89) Active confirmed Problem Pure hypercholesterolemia (171861243) Pure hypercholesterolemia (E78.00) Active confirmed Problem Allergic rhinitis (75064197) Allergic rhinitis, unspecified seasonality, unspecified trigger (J30.9) Active confirmed Vital Signs Heart Rate 62 /min 12/22/2024 Blood pressure diastolic 78 mm Hg 12/22/2024 Height 61.50 in 12/22/2024 Blood pressure systolic 122 mm Hg 12/22/2024 Weight 139 lbs 12/22/2024 BMI 25.84 kg/m2 12/22/2024 Encounters Encounter Location Date Provider Diagnosis [facility] [address] [facility] [address] [facility] [address] [place] Hinojosa [id number] 09/12/2024 Neto Foxhome Seasonal allergic rh initis due to other allergic trigger J30.89 [facility] [address] [facility] [address] [facility] [address] [place] Hinojosa [id number] 09/21/2024 Irene Crowdy Allergic rhinitis, unspecified seasonality, unspecified trigger J30.9 [facility] [address] [place], [place] [id number] 09/25/2024 Neto [place] Seasonal allergic rh initis due to other allergic trigger J30.89 [facility] [address] [place], [place] [id number] 10/03/2024 Neto [place] Allergic rhinitis, unspecified seasonality, unspecified trigger J30.9 [facility] [address] [place], [place] [id number] 10/10/2024 Neto [place] Seasonal allergic rh initis due to other allergic trigger J30.89 [facility] [address] [place], [place] [id number] 10/18/2024 Neto [place] Allergic rhinitis, unspecified seasonality, unspecified trigger J30.9 [facility] [address] [place] [id number] 10/26/2024 Neto [place] Seasonal allergic rh initis due to other allergic trigger J30.89 [facility] [address] [place], [place] [id number] 11/03/2024 Neto Fox[place] Seasonal allergic rh initis due to other allergic trigger J30.89 [facility] [address] [place] [id number] 11/11/2024 Neto [place] Allergic rhinitis, unspecified seasonality, unspecified trigger J30.9 [facility] [address] [place] [id number] 11/24/2024 Neto [place] Seasonal allergic rh initis due to other allergic trigger J30.89 [facility] [address] [place] [id number] 12/01/2024 Neto Foxhome Chest pain, unspecif ied type R07.9 [facility] [address] [place], [place] [id number] 12/02/2024 Neto Foxhome Allergic rhinitis, unspecified seasonality, unspecified trigger J30.9 [facility] [address] [place] [id number] 12/05/2024 Neto Foxhome Atypical chest pain R07.89 [facility] [address] [place] [id number] 12/12/2024 Neto [place] Allergic rhinitis, unspecified seasonality, unspecified trigger J30.9 [facility] [address] [place] [id number] 12/19/2024 Neto Foxhome Allergic rhinitis, unspecified seasonality, unspecified trigger J30.9 [facility] [address] [place] [id number] 12/22/2024 Neto Foxhome Pure hypercholestero lemia E78.00 [facility] [address] [place] [id number] 12/28/2024 Neto [place] Allergic rhinitis, unspecified seasonality, unspecified trigger J30.9 [facility] [address] [place] [id number] 06/13/2024 Jael Stacy [facility] [address] [place], [place] [id number] 10/03/2024 Jael Stacy Assessments Encounter Date Diagnosis [...] to other allergic trigger (ICD-10 - J30.89) 12/12/2024 Allergic rhinitis, unspecified seasonality, unspecified trigger (ICD-10 - J30.9) 12/19/2024 Allergic rhinitis, unspecified seasonality, unspecified trigger (ICD-10 - J30.9) 12/22/2024 Pure hypercholesterolemia (ICD-10 - E78.00) diet & exercise reviewed with patient 12/28/2024 Allergic rhinitis, unspecified seasonality, unspecified trigger (ICD-10 - J30.9) 12/05/2024 Atypical chest pain (ICD-10 - R07.89) Patient to see cardiology at [facility] in 2 weeks 12/02/2024 Allergic rhinitis, unspecified seasonality, unspecified trigger (ICD-10 - J30.9) 12/01/2024 Chest pain, unspecif ied type (ICD-10 - R07.9) Patient taken to ER for further evaluation 09/25/2024 Seasonal allergic rhinitis due to other allergic trigger (ICD-10 - J30.89) Plan Of Treatment Next Appt Details Provider Name:Neto Rosado ry, 06/21/2025 10:00:00 AM, [address] [facility], [address], [place], [place], [id number], Insurance Providers Payer Name Payer Address Payer Phone Subscriber Number Group Number Insured Name Patient Relationship to Insured Coverage Start Date Coverage End Date AETNA [facility] [address] [place], [place] [id number] [phone] [id number] Mica Zabala Self - patient is the [...]
--- OUTSIDE RECORDS SUMMARY | 2024-12-29 09:12 | XMS_ITS | Encounter Summary ---
Author Organization [facility] Address [address] [place] [address] Care Team Providers Care Refrigerating Engineer Name Role Phone Orestes Stacy MD Primary Care Provider [phone] Kimmie Burks MD Unavailable Encounter Details Date Type Department Care Team (Latest Contact Info) Description 12/29/2024 Travel Social History Tobacco Use Types Packs/Day Years [...] Description 01/01/2025 1:00 PM EDT Office Visit [facility] [address], [address] [place] [address] Janes Francisco MD [address] [facility] [address] [place] [address] 02/28/2025 1:15 PM EST Office Visit [facility] Otolaryngology [address]rd [place] [address] Omega Limon MD [address] [place] [address] documented as of this encounter Visit Diagnoses Not on filedocumented in this encounter Additional Health Concerns Assessment Noted Time A fall risk assessment has been complete d for the patient 06/29/2022 1:51 PM EDT A Body Mass Index follow-up plan has been documented for the patient 09/19/2024 9:39 AM EDT documented as of this encounter Care Teams Refrigerating Engineer Relationship Specialty Start Date End Date Orestes Stacy MD [address] [place] [address] PCP - General 01/19/22 Kimmie Burks MD [address] [place] [address] Resident Neurology 06/29/22 documented as of this encounter
--- OUTSIDE RECORDS SUMMARY | 2024-12-29 09:12 | XMS_ITS | Encounter Summary ---
Author Organization [facility] Address [address] [place] [address] Care Team Providers Care Power Tong Operator Name Role Phone Orestes Stacy MD Primary Care Provider [phone] Kimmie Burks MD Unavailable Encounter Details Date Type Department Care Team (Late st Contact Info) Description 12/12/2024 Telephone [facility] [address], [address]rd [place] [address] Omega Limon MD [address] [place] [address] Social History Tobacco Use Types [...] stated that both medications can be purchased [id number]. * Telephone Encounter - Shawn Sabrina Kaiden - 12/12/2024 11:59 AM EDT Emailed documented in this encounter Plan of Treatment Upcoming Encounters Date Type Department Care Team (Late st Contact Info) Description 01/01/2025 1:00 PM EDT Office Visit [facility] [address] [facility] 5th Floor [address] [place] [address] Janes Francisco MD [address] [facility] [address] [place] [address] 02/28/2025 1:15 PM EST Office Visit [facility] Otolaryngology [address], [address] [place] [address] Omega Limon MD [address] [facility] [address] [place] [address] documented as of this encounter Visit Diagnoses Not on filedocumented in this encounter Additional Health Concerns Assessment Noted Time A fall risk assessment has been complete d for the patient 06/29/2022 1:51 PM EDT A Body Mass Index follow-up plan has been documented for the patient 09/19/2024 9:39 AM EDT documented as of this encounter Care Teams Power Tong Operator Relationship Specialty Start Date End Date Orestes Stacy MD [address] [place] [address] PCP - General 01/19/22 Kimmie Burks MD [address] [place] [address] Resident Neurology 06/29/22 documented as of this encounter
--- OUTSIDE RECORDS SUMMARY | 2024-12-29 09:12 | XMS_ITS | Encounter Summary ---
Author Organization [facility] Address [address] [place] [address] Care Team Providers Care Assembly Machine Set Up Mechanic Name Role Phone Orestes Stacy MD Primary Care Provider [phone] Kimmie Burks MD Unavailable Encounter Details Date Type Department Care Team (Late st Contact Info) Description 12/13/2024 Orders Only [facility] Otolaryngology [address], 3rd [place] [address] Omega Limon MD [address] [facility] [address] [place] [address] Social History Tobacco Use Types [...] Description 01/01/2025 1:00 PM EDT Office Visit [facility] Clinic [address] 5[address] Floor [address] [place] [address] Janes Francisco MD [address] [place] [address] 02/28/2025 1:15 PM EST Office Visit [facility] [address], [address]rd [place] [address] Omega Limon MD [address] [place] [address] documented as of this encounter Visit Diagnoses Not on filedocumented in this encounter Additional Health Concerns Assessment Noted Time A fall risk assessment has been complete d for the patient 06/29/2022 1:51 PM EDT A Body Mass Index follow-up plan has been documented for the patient 09/19/2024 9:39 AM EDT documented as of this encounter Care Teams Assembly Machine Set Up Mechanic Relationship Specialty Start Date End Date Orestes Stacy MD [address] [facility] [address] [place] [address] PCP - General 01/19/22 Kimmie Burks MD [address] [place] [id number] Resident Neurology 06/29/22 documented as of this encounter
--- OUTSIDE RECORDS SUMMARY | 2024-12-29 09:12 | XMS_ITS | Encounter Summary ---
Author Organization [facility] Address [address] [place] [address] Care Team Providers Care Smasher Name Role Phone Orestes Stacy MD Primary Care Provider [phone] Kimmie Burks MD Unavailable Encounter Details Date Type Department Care Team (Late Contact Info) Description 12/23/2021 Orders Only External Location [address] [place] [address] Lester Thorne MD [address] [facility] [address] [place] [address] Social History Tobacco Use Types Packs/Day Years [...] Encounters Date Type Department Care Team (Late Contact Info) Description 01/01/2025 1:00 PM EDT Office Visit [facility] [address] [facility] 5th Floor [address] [place] [address] Janes Francisco MD [address] [facility] [address] [place] [address] 02/28/2025 1:15 PM EST Office Visit [facility] [address], 3rd [place] [address] Omega Limon MD [address] [place] [address] documented as of this encounter Procedures Procedure [...] on filedocumented in this encounter Care Teams Smasher Relationship Specialty Start Date End Date Orestes Stacy MD [address] [place] [address] PCP - General 01/19/22 Kimmie Burks MD [address] [place] [address] Resident Neurology 06/29/22 documented as of this encounter
== END 2024-12-29 23:59 | disposition home or self-care (01) ==
LOC: RT 09:09
PROVIDERS: PCP Family Medicine; Visit Provider Internal Medicine
DX: I72.1 Aneurysm of artery of upper extremity (principal); I74.2 Embolism and thrombosis of arteries of the upper extremities
CPT/HCPCS: 93931

== ENCOUNTER 2025-02-09 08:42 | Outpatient (RCR) | payer OTHER, SELFPAY | END 2025-02-09 23:59 | disposition home or self-care (01) | LOC: PT 08:42 | PROVIDERS: PCP Family Medicine; Visit Provider Physician Assistant Surgical | DX: I72.1 Aneurysm of artery of upper extremity; T81.49XD Infection following a procedure, other surgical site, subsequent encounter ==

== ENCOUNTER 2025-02-21 14:00 | Outpatient (RCR) | payer OTHER, SELFPAY | END 2025-02-21 23:59 | disposition home or self-care (01) | LOC: OT 14:00 | PROVIDERS: PCP Family Medicine; Visit Provider Physician Assistant Surgical | DX: M25.531 Pain in right wrist (principal) | CPT/HCPCS: 97032; 97035; 97110; 97140; 97166 ==

== ENCOUNTER 2025-03-01 11:00 | Outpatient (RCR) | payer OTHER, SELFPAY | END 2025-03-01 23:59 | disposition home or self-care (01) | LOC: OT 11:00 | PROVIDERS: PCP Family Medicine; Visit Provider Physician Assistant Surgical | DX: M25.531 Pain in right wrist (principal) | CPT/HCPCS: 97014; 97032; 97035; 97110; 97140; G0283 ==